=== PATIENT | male | born 1960 | race Caucasian/White ===

== ENCOUNTER 2019-10-25 07:51 | Outpatient (CLI) | payer BC, OTHER, SELFPAY ==
--- NOTE | ~2019-10-25 | US_ITS ---
EXAMINATION: US art doppler w press LE BI DATE: 10/25/2019 08:41 INDICATION: Lower limb pain and claudication. TECHNIQUE: Segmental pressures and plethysmographic and Doppler waveforms of the brachial and lower e xtremity arteries were obtained. COMPARISON: None. FINDINGS: Right and left brachial artery pressures of 100 mm Hg and 103 mm Hg, respectively, are concordant (no rmal difference <= 30 mmHg). The right and left high-thigh pressure indices are 1.17 and 0.66, respec tively (normal > 1.2). The right ankle-brachial index (NADER) is 1.20 (normal >= 0.9-1). The right great toe-brachial index (T BI) is 0.81 (normal >= 0.6-0.8). The right lower extremity segmental pressure gradients are normal (n ormal gradients <= 20-30 mmHg between adjacent levels on the same leg or the same levels on the two l egs). Arterial waveforms are biphasic with brisk systolic upstrokes throughout. The left NADER is 0.59. The left TBI is 0.20. The left lower extremity segmental pressure gradients are significantly decreased relative to the arteries in the right lower limb at each level. Arterial wav eforms demonstrate parvus tardus waveforms with dampened systolic peaks with mildly delayed upstrokes . IMPRESSION: 1. 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 Reviewed, dictated and finalized at location A. [employer] SCI[employer]
== END 2019-10-25 07:52 | disposition home or self-care (01) ==
PROVIDERS: PCP Family Medicine; Visit Provider Family Medicine
DX: M79.669 Pain in unspecified lower leg (principal); I73.9 Peripheral vascular disease, unspecified
CPT/HCPCS: 93923

== ENCOUNTER 2020-02-26 19:05 | Emergency (ER) | payer BC, OTHER, SELFPAY ==
--- NOTE | ~2020-02-26 | XR_ITS ---
EXAMINATION: XR foot RT min 3V DATE: 02/26/2020 19:55 INDICATION: Right heel pain TECHNIQUE: Dorsoplantar, two oblique and lateral views of the right foot were obtained. COMPARISON: None. FINDINGS: Mild hallux valgus with mild osteoarthritis at the first metatarsophalangeal joint. No acute fracture . Interval progression particularly in the subtalar joint of advanced osteoarthritis at the right tib iotalar and subtalar joints with remodeling of the articular surfaces of both joints resulting in los s of bone stock and flattening of the talar dome. Again seen is an old fracture deformity versus oste otomy at the head of the fifth metatarsal. There is severe secondary osteoarthritis at the fifth meta tarsophalangeal joint. Additional mild osteoarthritis at several tarsal metatarsal and interphalangea l joints. Soft tissues are unremarkable. IMPRESSION: 1. No acute osseous abnormality. 2. 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 Reviewed, dictated and finalized at location A. IMPRESSION: 1. No acute osseous abnormality. 2. Polyarticular osteoarthritis, advanced at the right ankle and subtalar joint s.
--- NOTE | ~2020-02-26 | XR_ITS ---
EXAMINATION: XR knee LT min 4V DATE: 02/26/2020 19:55 INDICATION: Left knee pain post fall TECHNIQUE: Anteroposterior, 2 oblique and crosstable lateral views of the left knee were obtained COMPARISON: None. FINDINGS: Alignment is normal. No fracture. Tricompartmental osteoarthritis at the left knee with mild joint s pace narrowing the medial compartment and moderate to severe joint space narrowing the lateral compar tment which could be underestimated on nonweightbearing imaging. Small marginal osteophytes in all 3 compartments. Moderate-sized left knee joint effusion without layering lipohemarthrosis. Loose osteoc hondral body at the recess of the posterior medial aspect of the left knee. Subtle enthesopathic ossi fication at the distal quadriceps tendon. Mild scattered atherosclerotic calcification in the distal thigh and proximal calf. IMPRESSION: 1. Moderate-sized left knee joint effusion which may be reactive. No lipohemarthrosis or acute osseou s abnormality. 2. Moderate to severe medial compartment predominant tricompartmental osteoarthritis at the left knee . Reviewed, dictated and finalized at location A. IMPRESSION: 1. Moderate-sized left knee joint effusion which may be reactive. No lipohemart hrosis or acute osseous abnormality. 2. Moderate to severe medial compartment predominant tricompartmental osteoarth ritis at the left knee.
[2020-02-26 19:11] VITALS: BP 117/75; PULSE 103; RESP 20; O2SAT 97
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
== END 2020-02-26 21:07 | disposition home or self-care (01) ==
PROVIDERS: Emergency Provider Emergency Medicine; PCP Family Medicine
DX: M25.562 Pain in left knee (principal); I10 Essential (primary) hypertension; M06.9 Rheumatoid arthritis, unspecified; M05.9 Rheumatoid arthritis with rheumatoid factor, unspecified; F17.200 Nicotine dependence, unspecified, uncomplicated; M79.671 Pain in right foot; M17.12 Unilateral primary osteoarthritis, left knee; M19.071 Primary osteoarthritis, right ankle and foot; V18.4XXA Pedal cycle driver injured in noncollision transport accident in traffic accident, initial encounter; Y93.55 Activity, bike riding
CPT/HCPCS: 73564; 73630; 99284; A9270

== ENCOUNTER 2022-01-22 08:35 | Inpatient (IN) | payer BC, OTHER, SELFPAY ==
--- NOTE | ~2022-01-22 | XR_ITS ---
EXAMINATION: XR hip RT 2V w AP pelvis DATE: 01/22/2022 09:08 INDICATION: Right hip pain post fall TECHNIQUE: Anteroposterior view of the pelvis and anteroposterior, frog leg and cross-table lateral v iews of the right hip were obtained. COMPARISON: None. FINDINGS: Nondisplaced transcervical fracture of the proximal right femur with posterolateral impaction resulti ng in approximately 10 degrees posterior and valgus angulation. No other fractures identified. Partia lly visualized left total hip arthroplasty in near-anatomic alignment. Mild bilateral sacroiliac oste oarthritis. Severe lumbosacral spondylosis. Scattered atherosclerotic calcific lesions in the pelvis and proximal thighs. Bilateral nephrolithiasis. IMPRESSION: 1. Impacted nondisplaced transcervical fracture of the proximal right femur with mild posterior and v algus angulation. Reviewed, dictated and finalized at location A. IMPRESSION: 1. Impacted nondisplaced transcervical fracture of the proximal right femur wit h mild posterior and valgus angulation.
--- NOTE | ~2022-01-22 | XR_ITS ---
EXAMINATION: XR surgery orthopedic DATE: 01/23/2022 13:28 INDICATION: Fixation of a right hip fracture. TECHNIQUE: 2 fluoroscopic images of the right hip were obtained during procedure performed by Dr. Vignesh gutierrez. Radiologist was not present for the imaging or procedure. The amount of fluoroscopy time used duri ng this procedure was 0.6 minutes. COMPARISON: None. FINDINGS: Interval fixation with 3 cannulated lag screws of the previous noted transcervical fracture of the pr oximal right femur. Alignment remains near-anatomic with no significant change in mild posterior and valgus angulation of the fracture. Mild osteoarthritis at the right hip. IMPRESSION: 1. Extension of a transcervical fracture of the proximal right femur which remains in near-anatomic a lignment with mild posterior and valgus angulation. Reviewed, dictated and finalized at location A. IMPRESSION: 1. Extension of a transcervical fracture of the proximal right femur which blaze ins in near-anatomic alignment with mild posterior and valgus angulation.
[2022-01-22 08:39] VITALS: BP 181/94; PULSE 82; RESP 16; TEMP 37.3; O2SAT 98
--- NOTE | 2022-01-22 08:55 | ED.LOWEXIN ---
HPI - Extremity Injury (Lower) General Chief Complaint: Extremity Injury, Lower Stated Complaint: R hip pain s/p Time Seen by Provider: 01/22/22 08:43 History of Present Illness HPI Narrative: 61-year-old male presents to the emergency room for evaluation of right hip pain. Patient states that approximately midnight he slipped and fell on a wet garage and injured his right hip. Patient states that he has not been ambulatory following the fall. Patient states pain radiates into his right groin. Pain with movement. Related Data Home Medications Medication Instructions Recorded Confirmed etanercept 50 mg/mL (1 mL) 50 mg SUB-Q WEEKLY 10/17/19 subcutaneous cartridge methotrexate sodium 2.5 mg tablet 20 mg PO WEEKLY tablet 10/17/19 Allergies Allergy/AdvReac Type Severity Reaction Status Date / Time No Known Allergies Allergy Verified 01/22/22 08:42 Review of Systems Review of Systems: CONSTITUTIONAL: Denies fever, chills, or sweats. EYES: Denies visual changes, redness, or discharge. ENT: Denies rhinorrhea, congestion, sore throat, or otalgia. CARDIOVASCULAR: Denies chest pain, palpitations, or edema. RESPIRATORY: Denies cough or dyspnea. GASTROINTESTINAL: Denies abdominal pain, nausea, vomiting, or diarrhea. GENITOURINARY: Denies dysuria or hematuria. SKIN: Denies rash or itching. MUSCULOSKELETAL: Reports right hip pain NEUROLOGIC: Denies headache, numbness, dizziness, or weakness. PSYCHIATRIC: Denies anxiety or depression. [facility] Past Medical History Medical History (Updated 01/22/22 @ 13:23 by Buffy Shahid APRN) Claudication in peripheral vascular disease Essential (primary) hypertension Rheumatoid arthritis involving multiple sites with positive rheumatoid factor Surgical History Surgical History (Updated 01/22/22 @ 13:23 by Buffy Shahid APRN) History of tonsillectomy History of total left hip replacement Family History Family History (Updated 01/22/22 @ 14:04 by Kelsie Soliz RN) Mother Family history of malignant neoplasm of breast Family history of malignant neoplasm of breast in first degree relative Sibling Heart attack S/P CABG x 4 Social History Social History (Updated 01/22/22 @ 13:24 by Buffy Shahid APRN) Smoking status: Former smoker Additional smoking assessment comments: patient states he smoked 2 packs of cigarettes a day for 45 years. Alcohol intake: current Alcohol use details: Patient drinks hard liquor on weekends. Exam Narrative: GENERAL: Well-appearing, well-nourished, and in no acute distress. HEAD: Normocephalic, atraumatic. EYES: PERRLA and EOMI. CHEST: Clear to auscultation. No respiratory distress. No wheezes rales or rhonchi HEART: Regular rate and rhythm. No murmur heard. Normal peripheral pulses. EXTREMITIES: Right hip: Tenderness to the right gluteal area, radiating into the right groin, extremity slightly shortened and rotated, distal pulses present SKIN: Warm, dry, no rash. NEURO: No focal deficits. Alert and oriented x3. PSYCH: Normal mood and affect. Course Course Emergency Course: 1000: Patient requesting transfer to [facility], to have fractured hip repair at [place]. Called [facility] transfer center, they are not excepting any transfers due to patient requests. 1015: Paged [facility]. Vital Signs Vital signs: Vital Signs Temperature 37.3 C 01/22/22 08:39 Pulse Rate 82 01/22/22 08:39 Respiratory Rate 16 01/22/22 08:39 Blood Pressure 181/94 H 01/22/22 08:39 Pulse Oximetry 98 01/22/22 08:39 Temperature 36.6 C 01/22/22 14:00 Pulse Rate 56 L 01/22/22 14:00 Respiratory Rate 18 01/22/22 14:00 Blood Pressure 166/77 H 01/22/22 14:00 Pulse Oximetry 100 01/22/22 14:00 MDM - Extremity Injury (Lower) MDM Narrative Medical decision making narrative: 61-year-old male presented the emergency room for evaluation of right hip pain status post mechanical fall that occurred earlier t
--- NOTE | 2022-01-22 09:22 | ECG_ITS ---
Measurements Intervals [place] Rate: 85 P: 78 PA: 148 QRS: 52 QRSD: 73 T: 67 QT: 372 QTc: 444 Interpretive Statements SINUS RHYTHM VENTRICULAR BIGEMINY ABNORMAL ECG Electronically Signed On 01-22-2022 10:20:02 CDT by Jarrell Bonilla D.O.
[2022-01-22 09:40] LABS: Basophils Percent Auto 0.4 % (0.2-1.2); Eosinophils Percent Auto 0.4 % (0-4.4); Hematocrit 38.7 % (42.0-52.0); Hemoglobin 12.8 g/dL (14.0-18.0); Immature Granulocyte Absolute 0.04 K/mm3 (0.00-0.031); Immature Granulocyte Percent A 0.5 % (0-0.5); Lymphocytes Absolute Auto 0.71 K/mm3 (0.9-3.2); Lymphocytes Percent Auto 8.3 % (18.3-44.2); Mean Corpuscular HGB Conc 33.1 g/dl (32-36); Mean Corpuscular Volume 99.7 fl (80-100); Mean Platelet Volume 9.9 fl (7.4-10.4); Monocytes Absolute Auto 0.7 K/mm3 (0.1-0.6); Monocytes Percent Auto 8.2 % (2.6-8.5); Neutrophils Percent Auto 82.2 % (45.5-73.1); Platelet Count Result 243 k/mm3 (150-375); Red Blood Count 3.88 M/mm3 (4.6-6.20); Red Cell Distribution Width 15.3 % (11.5-14.5); White Blood Count 8.5 K/mm3 (4.5-10.0)
[2022-01-22 10:08] LABS: Alanine Aminotransferase 22 U/L (6-50); Albumin Level 3.9 g/dL (3.5-5.1); Alkaline Phosphatase 104 U/L (38-126); Anion Gap 7 mmol/L (8-16); Aspartate Amino Transferase 27 U/L (17-59); Bilirubin,Total 0.8 mg/dL (0.2-1.3); Blood Urea Nitrogen 12 mg/dL (9-20); Calcium 8.4 mg/dL (8.4-10.2); Carbon Dioxide 22 mmol/L (22-30); Chloride 108 mmol/L (98-107); Estimated CRCL calculation 69 ml/min; Estimated Glomerular Filt Rate > 60; Glucose 116 mg/dL (65-110); Magnesium 1.9 mg/dL (1.6-2.3); Potassium 3.8 mmol/L (3.4-5.0); Sodium 137 mmol/L (137-145)
[2022-01-22 10:15] LABS: Appearance Urine Clear (Clear); Bilirubin Urine Negative (Negative); Blood Urine 1+ (Negative); Color Urine Yellow (Yellow); Glucose Urine UA Negative (Negative); Ketones Urine Negative (Negative); Leukocyte Esterase Ur Negative LEU/UL (Negative); Nitrate Urine Negative (Negative); Protein Urine Negative (Negative); Urobilinogen Urine 0.2 mg/dL (<2.0); pH Urine 6.5 (5.0-9.0)
[2022-01-22 10:19] LABS: Add Urine Microscopic? YES; Mucus Urine Rare /lpf; RBC Urine 21-50 /hpf (0-2); WBC Urine 0-3 /hpf
[2022-01-22 11:28] VITALS: BP 173/94; PULSE 76; RESP 18; O2SAT 97
[2022-01-22 12:21] VITALS: BP 175/85; PULSE 71; RESP 16; O2SAT 99
[2022-01-22 12:22] LABS: SARS-CoV-2 RNA PCR Negative
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
[2022-01-22 13:20] VITALS: BP 161/103; PULSE 63; RESP 16; O2SAT 99
[2022-01-22 13:45] VITALS: BMI 22.4
--- NOTE | 2022-01-22 13:45 | PC.NURSE ---
This patient, Scottie Jerome, was admitted to [facility] Surg Room 303-01. Patient/family oriented to hospital policies and general routines including ID bracelet, bed and alarms, visiting hours, pain management, procedures, bathroom and other care routines, personal items, smoking policy, room service/diet, and visiting hours. Information on how to activate the Rapid Response Team has been discussed. Patient/Family are encouraged to report perceived risks to care and to ask questions if they do not understand what they are told or what they should do.
[2022-01-22 14:00] VITALS: BP 166/77; PULSE 56; RESP 18; TEMP 36.6; O2SAT 100
[2022-01-22 14:59] LABS: INR 1.1; Prothrombin Time 13.4 Seconds (11.1-14.7)
[2022-01-22 15:00] LABS: Partial Thromboplastin Time 26.1 SECONDS (22.3-36.8)
--- NOTE | 2022-01-22 16:16 | PM.CNOR ---
Assessment and Plan Assessment and plan (1) Subcapital fracture of neck of right femur: Qualifiers: Encounter type: initial encounter Fracture type: closed Qualified Code(s): S72.011A - Unspecified intracapsular fracture of right femur, initial encounter for closed fracture Code(s): S72.011A - Unspecified intracapsular fracture of right femur, initial encounter for closed fracture Status: Acute Assessment and Plan: 61-year-old male with a right subcapital femoral neck fracture. This will need to be stabilized surgically with a pinning in-situ. Plan on proceeding with this tomorrow. Risks and potential complications were discussed in detail and questions answered. History of Present Illness HPI Consult date: 01/22/22 Consult reason: fracture Chief complaint: Right hip fracture Narrative: 61-year-old male with a left subcapital femoral neck fracture. He fell last night at his home was brought to the ER today where x-ray demonstrated subcapital fracture. He was admitted for further evaluation and treatment of this issue. No other injuries with this occurrence other than abrasion to his right wrist. History of left hip replacement about nine years ago. History rheumatoid arthritis. 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 Review of Systems Constitutional: Constitutional: Denies chills and Denies fever(s) Eyes: Eyes: Reports no additional eye complaints ENT: Reports system reviewed and no additional complaints, except as documented Cardiovascular: Cardiovascular: Denies chest pain Respiratory: Respiratory: Reports no additional respiratory complaints Gastrointestinal: Gastrointestinal: Denies abdominal pain PMFSH Past Medical History Medical History Claudication in peripheral vascular disease Essential (primary) hypertension Rheumatoid arthritis involving multiple sites with positive rheumatoid factor Surgical History Surgical History History of tonsillectomy History of total left hip replacement Family History Family History Mother Family history of malignant neoplasm of breast Family history of malignant neoplasm of breast in first degree relative Heart failure Sibling Heart attack S/P CABG x 4 Social History Social History Smoking packs per day: 2 Smoking cigarettes per day: 40.0 Years smoked: 45 Smoking pack-years: 90.00 Smoking status: Current every day smoker Tobacco type: e-cigarettes/vaping Additional smoking assessment comments: Patient stopped cigarettes 05/06/21 started vaping Alcohol intake: current Drinks per week: 5 Alcohol use details: Patient drinks hard liquor on weekends. Substance use: never Spiritual care concerns: No Meds Home Medications and Allergies Home Medications Medication Instructions Recorded Confirmed Type etanercept 50 mg/mL (1 mL) 50 mg SUB-Q WEEKLY 10/17/19 01/22/22 History subcutaneous cartridge methotrexate sodium 2.5 mg tablet 20 mg PO WEEKLY tablet 10/17/19 01/22/22 History tadalafil 20 mg tablet See Rx Instructions .ROUTE 04/15/21 01/22/22 Rx .COMPLEX #27 tablet lisinopril 10 mg PO DAILY 01/22/22 01/22/22 History metoprolol succinate 50 mg PO DAILY 01/22/22 01/22/22 History nicotine [Nicotrol] 3 mg INHALATION Q2-4H PRN 01/22/22 01/22/22 History Allergies Allergy/AdvReac Type Severity Reaction Status Date / Time No Known Allergies Allergy Verified 01/22/22 14:22 Vital Signs Vital Signs - 24 hr 01/22/22 08:39 01/22/22 11:28 01/22/22 12:21 Temperature 99.1 F Pulse Rate 82 76 71 Respiratory Rate 16 18 16 Blood Pressure 181/94 H 173/94 H 175/85 H Pulse Oximetry 98 97 99 01/22/22 13:20 01/22/22 14:00 Temperature 97.9 F Pulse Rate 63 56 L Respiratory
[2022-01-22 21:51] VITALS: BP 157/87; PULSE 74; RESP 16; TEMP 36.9; O2SAT 95
[2022-01-23] VITALS (13 sets, daily range): BP systolic 131–169; BP diastolic 74–125; PULSE 66–86; RESP 14–20; TEMP 36–36.8; O2SAT 97–100
--- NOTE | 2022-01-23 05:56 | PC.NURSE ---
Equal Opportunity Representative did not start fluids on pt as day shift RN gave in report an DATA DEVELOPER would be putting an order in to discontinue fluids.
[2022-01-23 06:50] LABS: Basophils Percent Auto 0.4 % (0.2-1.2); Eosinophils Absolute Auto 0.1 K/mm3 (0-0.3); Eosinophils Percent Auto 0.9 % (0-4.4); Hematocrit 41.5 % (42.0-52.0); Hemoglobin 14.1 g/dL (14.0-18.0); Immature Granulocyte Absolute 0.03 K/mm3 (0.00-0.031); Immature Granulocyte Percent A 0.4 % (0-0.5); Lymphocytes Absolute Auto 1.31 K/mm3 (0.9-3.2); Lymphocytes Percent Auto 16.1 % (18.3-44.2); Mean Corpuscular Hemoglobin 33.3 pg (26-34); Mean Corpuscular Volume 97.9 fl (80-100); Monocytes Absolute Auto 0.4 K/mm3 (0.1-0.6); Monocytes Percent Auto 5.4 % (2.6-8.5); Neutrophils Absolute Auto 6.3 K/mm3 (1.3-6.7); Neutrophils Percent Auto 76.8 % (45.5-73.1); Platelet Count Result 254 k/mm3 (150-375); Red Blood Count 4.24 M/mm3 (4.6-6.20); Red Cell Distribution Width 14.8 % (11.5-14.5); White Blood Count 8.2 K/mm3 (4.5-10.0)
[2022-01-23 07:01] LABS: Anion Gap 8 mmol/L (8-16); Blood Urea Nitrogen 11 mg/dL (9-20); Calcium 8.6 mg/dL (8.4-10.2); Carbon Dioxide 22 mmol/L (22-30); Chloride 105 mmol/L (98-107); Estimated CRCL calculation 74 ml/min; Estimated Glomerular Filt Rate > 60; Glucose 112 mg/dL (65-110); Magnesium 2.1 mg/dL (1.6-2.3); Potassium 3.7 mmol/L (3.4-5.0); Sodium 135 mmol/L (137-145)
[2022-01-23 08:57] LABS: Glucose Point of Care 104 mg/dl (65-105)
[2022-01-23] MEDS: lisinopriL 10 MG TABLET PO (09:06)
--- NOTE | 2022-01-23 10:16 | PM.IMPN ---
Progress Note: A&P Assessment and Plan (1) Closed fracture of right hip: Qualifiers: Encounter type: initial encounter Qualified Code(s): S72.001A - Fracture of unspecified part of neck of right femur, initial encounter for closed fracture Code(s): S72.001A - Fracture of unspecified part of neck of right femur, initial encounter for closed fracture Status: Deleted Assessment and Plan: Orthopedic surgery has been consult and appreciate further recommendations. (2) Essential (primary) hypertension: Code(s): I10 - Essential (primary) hypertension Status: Acute Assessment and Plan: monitor (3) Rheumatoid arthritis involving multiple sites with positive rheumatoid factor: Code(s): M05.79 - Rheumatoid arthritis with rheumatoid factor of multiple sites without organ or systems involvement Status: Acute Assessment and Plan: chronic and stable Subjective Date/time seen: 01/23/22 10:16 pain controlled Exam Narrative: Constitutional: Patient is well-nourished in no acute distress. Patient is alert and oriented x3 HEENT: Moist mucous membranes. No scleral icterus. No lymphadenopathy. Neck: No carotid bruits noted no JVD noted Lungs: Lung sounds are clear to auscultation bilaterally. No accessory muscle use. No rhonchi, rales, or wheezes noted. Cardiovascular: Apical pulse is regular rate and rhythm. S1-S2 noted, no S3 or S4 noted. No gallops, murmurs, or rubs noted. Abdomen: Soft, round, and nontender. No palpable masses. Extremities: No edema. Patient's right lower extremity is shorter than left lower extremity. Patient's right pedal pulses palpable at 3+ with a posterior tibial pulses 2+. Skin: No rashes or lesions. Warm and dry. Skin is intact. Neurological: No focal neurological deficits. Cranial nerves II-XII grossly intact. Psychiatric: Cooperative, appropriate mood, and affect Objective Data Vital Signs Vital Signs: Vital Signs - 24 hr 01/22/22 11:28 01/22/22 12:21 01/22/22 13:20 Temperature Pulse Rate 76 71 63 Respiratory Rate 18 16 16 Blood Pressure 173/94 H 175/85 H 161/103 H Pulse Oximetry 97 99 99 01/22/22 14:00 01/22/22 21:51 01/23/22 06:00 Temperature 97.9 F 98.4 F 98.2 F Pulse Rate 56 L 74 70 Respiratory Rate 18 16 14 Blood Pressure 166/77 H 157/87 H 161/110 H Pulse Oximetry 100 95 98 01/23/22 07:56 Temperature Pulse Rate Respiratory Rate Blood Pressure 152/74 H Pulse Oximetry Intake/Output Intake/Output: Intake & Output 01/20/22 01/21/22 01/22/22 01/23/22 23:59 23:59 23:59 23:59 Intake Total 150 100 Output Total 290 550 Balance -140 -450 Meds/Results Medications: Active Medications Generic Name Dose Route Start Last Admin Trade Name Freq PRN Reason Stop Dose Admin Hydrocodone Bitart/Acetaminophen 1 tab 01/22/22 13:09 Hydrocodone/Acetaminophen (*Crx) 5-325 Mg Tablet PO Q6H PRN Moderate Pain (4-6) Enoxaparin Sodium 40 mg 01/24/22 09:00 Enoxaparin 40 Mg/0.4 Ml Syringe SUB-Q DAILY [facility] Acetaminophen 1,000 mg in 100 mls @ 400 mls/hr 01/22/22 12:20 01/23/22 09:04 Ofirmev 1,000 Mg Ivpb IVPB 01/23/22 12:19 400 mls/hr Q6H PRN Administration Mild Pain (1-3) or Fever Sodium Chloride 1,000 mls @ 125 mls/hr 01/22/22 12:20 Normal Saline Iv IV CONT .Q8H ERIK Cefazolin Sodium 2 gm in 50 mls @ 100 mls/hr 01/23/22 12:00 Ancef 2 Gm/D5w 50 Ml IVPB 01/23/22 12:29 ONCE ONE Lactated Ringer's 1,000 mls @ 30 mls/hr 01/23/22 08:05 Lr - Lactated Ringers Iv IV CONT .Q24H ERIK Lisinopril 10 mg 01/23/22 09:00 01/23/22 09:06 Lisinopril 10 Mg Tablet PO 10 mg DAILY ERIK Administration Morphine Sulfate 2 mg 01/22/22 13:09 Morphine Sulfate (*Crx) 2 Mg/Ml Inj IV PUSH Q4H PRN Severe Pain Ondansetron HCl 4 mg 01/22/22 12:20 Ondansetron Inj 4 Mg/2 Ml Vial IV PUSH Q4H PRN Nausea Radi
--- NOTE | 2022-01-23 11:15 | PC.NURSE ---
To OR via bed.
[2022-01-23] MEDS: LACTATED RINGERS 1,000 ML 30 ML IV CONT ×2 (11:44→13:37)
--- NOTE | 2022-01-23 11:53 | WPDANESEPPF ---
Anes - Initial Pre Proc Eval Procedure: Operation Date: 01/23/22 12:30 Proposed Procedures p Right Hip Pinning, Cannulated Screws - Hieu Ramos MD Date/Time: 01/23/22 11:53 Surgeon: Chong Cole MD Pre Op Diagnosis: Right hip fracture Patient Data Age: 61 Gender: M Height: 1.78 m Weight: 70.9 kg Last Vital Signs Temp 97.6 F 01/23/22 11:35 Pulse 77 01/23/22 11:35 Resp 14 01/23/22 11:35 BP 168/95 H 01/23/22 11:35 Pulse Ox 98 01/23/22 11:35 Allergies Allergy/AdvReac Type Severity Reaction Status Date / Time No Known Allergies Allergy Verified 01/22/22 14:22 Home Medications Medication Instructions Recorded Confirmed Type etanercept 50 mg/mL (1 mL) 50 mg SUB-Q WEEKLY 10/17/19 01/22/22 History subcutaneous cartridge methotrexate sodium 2.5 mg tablet 20 mg PO WEEKLY tablet 10/17/19 01/22/22 History tadalafil 20 mg tablet See Rx Instructions .ROUTE 04/15/21 01/22/22 Rx .COMPLEX #27 tablet [employer] 2 cap BYMOUTH HS 01/22/22 01/22/22 History lisinopril 10 mg PO DAILY 01/22/22 01/22/22 History metoprolol succinate 50 mg PO DAILY 01/22/22 01/22/22 History nicotine [Nicotrol] 3 mg INHALATION Q2-4H PRN 01/22/22 01/22/22 History Laboratory Tests 01/22/22 01/22/22 01/23/22 11:32 14:24 06:01 WBC 8.2 K/mm3 K/mm3 (4.5-10.0) RBC 4.24 M/mm3 L M/mm3 (4.6-6.20) Hgb 14.1 g/dL g/dL (14.0-18.0) Hct 41.5 % L % (42.0-52.0) MCV 97.9 fl fl (80-100) MCH 33.3 pg pg (26-34) MCHC 34.0 g/dl g/dl (32-36) RDW 14.8 % H % (11.5-14.5) Plt Count 254 k/mm3 k/mm3 (150-375) MPV 10.0 fl fl (7.4-10.4) Immature Gran % (Auto) 0.4 % % (0-0.5) Neut % (Auto) 76.8 % H % (45.5-73.1) Lymph % (Auto) 16.1 % L % (18.3-44.2) Thur[place] % (Auto) 5.4 % % (2.6-8.5) Eos % (Auto) 0.9 % % (0-4.4) Baso % (Auto) 0.4 % % (0.2-1.2) Lymph # (Auto) 1.31 K/mm3 K/mm3 (0.9-3.2) Thur[place] # (Auto) 0.4 K/mm3 K/mm3 (0.1-0.6) Eos # (Auto) 0.1 K/mm3 K/mm3 (0-0.3) Baso # (Auto) 0.0 K/mm3 K/mm3 (0.0-0.1) Abs Immat Gran (auto) 0.03 K/mm3 K/mm3 (0.00-0.031) Absolute Neuts (auto) 6.3 K/mm3 K/mm3 (1.3-6.7) Absolute Nucleated RBC 0.0 K/mm3 K/mm3 (0.0-0.012) Nucleated RBC % 0.0 % % (0.0-0.2) PT 13.4 Seconds Seconds (11.1-14.7) INR 1.1 APTT 26.1 SECONDS SECONDS (22.3-36.8) Sodium Potassium Chloride Carbon Dioxide Anion Gap BUN Creatinine Estim Creat Clear Calc Estimated GFR Glucose POC Capillary Glucose Calcium Magnesium SARS-CoV-2 RNA (RT-PCR) Negative 01/23/22 01/23/22 06:01 08:54 WBC RBC Hgb Hct MCV MCH MCHC RDW Plt Count MPV Immature Gran % (Auto) Neut % (Auto) Lymph % (Auto) [place] % (Auto) Eos % (Auto) Baso % (Auto) Lymph # (Auto) Thur[place] # (Auto) Eos # (Auto) Baso # (Auto) Abs Immat Gran (auto) Absolute Neuts (auto) Absolute Nucleated RBC Nucleated RBC % PT INR APTT Sodium 135 mmol/L L mmol/L (137-145) Potassium 3.7 mmol/L mmol/L (3.4-5.0) Chloride 105 mmol/L mmol/L (98-107) Carbon Dioxide 22 mmol/L mmol/L (22-30) Anion Gap 8 mmol/L mmol/L (8-16) BUN 11 mg/dL mg/dL (9-20) Creatinine 0.90 mg/dL mg/dL (0.7-1.3) Estim Creat Clear Calc 74 ml/min ml/min Estimated GFR > 60 (59 - ) Glucose 112 mg/dL H mg/dL (65-110)
--- NOTE | 2022-01-23 12:09 | WPDHPUPDATE1 ---
History and Physical Update Update Date/Time: 01/23/22 12:09 History and Physical has been reviewed, including an updated exam of the patient. There are NO changes in the patient's condition. Risks, benefits, and alternatives have been discussed and questions answered. Patient agrees to proceed with procedure.
[2022-01-23] MEDS: ceFAZolin 2 GM/D5W 50 ML 2 GM/50 ML BAG IVPB ×2 (12:32→21:19)
[2022-01-23] MEDS: LIDO 1%/EPINEPHRINE/PF 1:200,000 30 ML VIAL XX (13:20)
--- NOTE | 2022-01-23 13:39 | W.PM.PROC2 ---
Procedure Note - Detailed Date of Procedure 01/23/22 Pre-op Diagnosis Right subcapital femoral neck fracture Post-op Diagnosis Same Procedure Performed Pinning in-situ right subcapital femoral neck fracture Surgeon Hieu Ramos MD Outsole [employer]ement[employer] Ashley Henry Anesthesia General Description of Procedure The patient was identified and proper site identified. He was taken back to the operative induction and intubation, he was transferred to the [place] table taking care to properly pad position is torso extremities. The fracture was examined fluoroscopically and noted to be in unchanged slightly impacted position. The right hip and thigh was prepped and draped in the usual sterile fashion. 10 cubic centimeters of 1% lidocaine and epinephrine solution was injected into the subcutaneous tissue in the area of the incision. A longitudinal incision was made. Subcutaneous tissue sharply dissected to the ID band which was divided in line with the incision. Under fluoroscopic control, three guide pins for the cannulated screw set were placed into the femoral neck and head with the targeting device and then over these three 6.5 millimeter cannulated screws were inserted and the guide pins removed. Position was assessed fluoroscopically on the AP and lateral views and noted be satisfactory. Wound was irrigated with sterile saline. ID band reapproximated with one Vicryl and 1. Vicryl was used to reapproximate subcutaneous tissue. Skin closed with three 0 V lock and grant. Sterile dressing was applied. Patient tolerated the procedure well. He was awakened, extubated and taken to the recovery area in stable condition. There were no known intraoperative complications. Estimated blood loss was negligible. He received reid operative antibiotics. Estimated Blood Loss 5 Urine Output 300 Drains No Packing No Pathology None sent Complications No immediate complications Condition Stable Disposition PACU
[2022-01-23] MEDS: fentaNYL CITRATE INJ (*CRX) 100 MCG/2 ML VIAL 25 MCG IV PUSH ×2 (14:03→14:06)
[2022-01-23] MEDS: FAMOTIDINE 20 MG TABLET PO (21:20)
[2022-01-24] VITALS (8 sets, daily range): BP systolic 131–150; BP diastolic 79–97; PULSE 74–87; RESP 16–22; TEMP 35.7–36.8; O2SAT 96–100
[2022-01-24] MEDS: ACETAMINOPHEN 325 MG TABLET 650 MG PO (00:54)
[2022-01-24] MEDS: ceFAZolin 2 GM/D5W 50 ML 2 GM/50 ML BAG IVPB ×2 (05:24→12:11)
--- NOTE | 2022-01-24 09:50 | PM.PNORT ---
Progress Note: A&P Assessment and Plan (1) Subcapital fracture of neck of right femur: Qualifiers: Encounter type: initial encounter Fracture type: closed Qualified Code(s): S72.011A - Unspecified intracapsular fracture of right femur, initial encounter for closed fracture Code(s): S72.011A - Unspecified intracapsular fracture of right femur, initial encounter for closed fracture Status: Acute Assessment and Plan: 61 year old male post op day 1 after pinning of right subcapital femoral neck fracture. Overall doing well and progressing with therapy. He is able to maintain toe touch weight bearing status without difficulty. Plan to have him stay today with possible discharge tomorrow. Home health therapy for 2 weeks would be reasonable. Plan follow up in 2 weeks for wound check and new xray. DVT prohylaxis: eliquis Pain control: tylenol and norco Subjective Subjective Date/Time Seen: 01/24/22 09:50 Post Op day: 1 Principal diagnosis: Pinning in-situ right subcapital femoral neck fracture Interval history: 61 year old male post op day after pinning right subcapital femoral neck fracture. Overall doing very well. He is up and moving and cooperating with his weight bearing status. No issues or concerns overnight. Review of Systems Review of Systems: All systems reviewed & are unremarkable except as noted in HPI and below Exam Const: General: comfortable and no acute distress Resp: Effort & Inspection: normal respiratory effort GI: Inspection: non-distended Skin: General skin exam: no rashes or lesions noted Neuro: Sensory Exam: normal sensation Extrem: Other: Exam of the right lower extremity reveals a clean and dry surgical dressing. Little to no edema of the extremity. No numbness or tingling. He is able to wiggle his toes and dorsiflex/plantarflex the foot without difficulty. Neurovascular status of the RLE is unremarkable. Psych: Mental Status: mental status grossly normal Objective Data Vital Signs Vital Signs: Vital Signs - 24 hr 01/23/22 11:35 01/23/22 13:37 01/23/22 13:50 Temperature 97.6 F 98.0 F Pulse Rate 77 81 69 Respiratory Rate 14 20 20 Blood Pressure 168/95 H 131/90 169/90 H Pulse Oximetry 98 99 100 01/23/22 14:05 01/23/22 14:20 01/23/22 14:35 Temperature Pulse Rate 66 77 70 Respiratory Rate 16 20 14 Blood Pressure 165/96 H 162/99 H 161/95 H Pulse Oximetry 100 97 100 01/23/22 14:46 01/23/22 15:01 01/23/22 15:31 Temperature 96.8 F L 97.3 F L 97.5 F L Pulse Rate 68 74 71 Respiratory Rate 16 18 16 Blood Pressure 163/93 H 151/98 H 161/97 H Pulse Oximetry 100 98 99 01/23/22 16:31 01/23/22 20:31 01/24/22 00:31 Temperature 97 F L 98.2 F 98.2 F Pulse Rate 78 86 80 Respiratory Rate 16 18 18 Blood Pressure 166/94 H 140/125 H 150/95 H Pulse Oximetry 99 97 96 01/24/22 04:29 Temperature 98.0 F Pulse Rate 78 Respiratory Rate 18 Blood Pressure 138/97 H Pulse Oximetry 99 Intake/Output Intake/Output: Intake & Output 01/21/22 01/22/22 01/23/22 01/24/22 23:59 23:59 23:59 23:59 Intake Total 150 700 350 Output Total 290 1250 500 Balance -140 -550 -150 Meds/Results Medications: Active Medications Generic Name Dose Route Start Last Admin Trade Name Freq PRN Reason Stop Dose Admin Acetaminophen 650 mg 01/23/22 14:46 01/24/22 00:54 Acetaminophen 325 Mg Tablet PO 650 mg Q6H PRN Administration Mild Pain (1-3) or Fever Hydrocodone Bitart/Acetaminophen 1 tab 01/23/22 14:46 Hydrocodone/Acetaminophen (*Crx) 5-325 Mg Tablet PO Q3H PRN Pain Rated 4-6 Hydrocodone Bitart/Acetaminophen 2 tab 01/23/22 14:46 Hydrocodone/Acetaminophen (*Crx) 5-325 Mg Tablet PO Q6H PRN Pain Rated 7-10 Apixaban 2.5 mg 01/24/22 09:00 Apixaban 2.5 Mg Tablet PO Q12HR ERIK Famotidine 20 mg 01/23/22 21:00 01/23/22 21:20 Famotidine 20 Mg Tablet PO 20 mg Q12HR ERIK Administration Cefazolin Sodium 2 g
[2022-01-24] MEDS: METOPROLOL SUCCINATE EXT REL 50 MG TABCR PO (09:55)
[2022-01-24] MEDS: FAMOTIDINE 20 MG TABLET PO ×2 (09:56→20:19)
[2022-01-24] MEDS: lisinopriL 10 MG TABLET PO (09:56)
[2022-01-24] MEDS: APIXABAN 2.5 MG TABLET PO ×2 (09:57→20:19)
--- NOTE | 2022-01-24 11:15 | PM.IMPN ---
Progress Note: A&P Assessment and Plan (1) Closed fracture of right hip: Qualifiers: Encounter type: initial encounter Qualified Code(s): S72.001A - Fracture of unspecified part of neck of right femur, initial encounter for closed fracture Code(s): S72.001A - Fracture of unspecified part of neck of right femur, initial encounter for closed fracture Status: Deleted Assessment and Plan: Orthopedic surgery has been consult and appreciate further recommendations. (2) Essential (primary) hypertension: Code(s): I10 - Essential (primary) hypertension Status: Acute Assessment and Plan: monitor (3) Rheumatoid arthritis involving multiple sites with positive rheumatoid factor: Code(s): M05.79 - Rheumatoid arthritis with rheumatoid factor of multiple sites without organ or systems involvement Status: Acute Assessment and Plan: chronic and stable Subjective Date/time seen: 01/24/22 11:15 Doing well Exam Narrative: Constitutional: Patient is well-nourished in no acute distress. Patient is alert and oriented x3 HEENT: Moist mucous membranes. No scleral icterus. No lymphadenopathy. Neck: No carotid bruits noted no JVD noted Lungs: Lung sounds are clear to auscultation bilaterally. No accessory muscle use. No rhonchi, rales, or wheezes noted. Cardiovascular: Apical pulse is regular rate and rhythm. S1-S2 noted, no S3 or S4 noted. No gallops, murmurs, or rubs noted. Abdomen: Soft, round, and nontender. No palpable masses. Extremities: No edema. Patient's right lower extremity is shorter than left lower extremity. Patient's right pedal pulses palpable at 3+ with a posterior tibial pulses 2+. Skin: No rashes or lesions. Warm and dry. Skin is intact. Neurological: No focal neurological deficits. Cranial nerves II-XII grossly intact. Psychiatric: Cooperative, appropriate mood, and affect Objective Data Vital Signs Vital Signs: Vital Signs - 24 hr 01/23/22 11:35 01/23/22 13:37 01/23/22 13:50 Temperature 97.6 F 98.0 F Pulse Rate 77 81 69 Respiratory Rate 14 20 20 Blood Pressure 168/95 H 131/90 169/90 H Pulse Oximetry 98 99 100 01/23/22 14:05 01/23/22 14:20 01/23/22 14:35 Temperature Pulse Rate 66 77 70 Respiratory Rate 16 20 14 Blood Pressure 165/96 H 162/99 H 161/95 H Pulse Oximetry 100 97 100 01/23/22 14:46 01/23/22 15:01 01/23/22 15:31 Temperature 96.8 F L 97.3 F L 97.5 F L Pulse Rate 68 74 71 Respiratory Rate 16 18 16 Blood Pressure 163/93 H 151/98 H 161/97 H Pulse Oximetry 100 98 99 01/23/22 16:31 01/23/22 20:31 01/24/22 00:31 Temperature 97 F L 98.2 F 98.2 F Pulse Rate 78 86 80 Respiratory Rate 16 18 18 Blood Pressure 166/94 H 140/125 H 150/95 H Pulse Oximetry 99 97 96 01/24/22 04:29 01/24/22 08:31 01/24/22 09:55 Temperature 98.0 F 97.5 F L Pulse Rate 78 79 80 Respiratory Rate 18 16 Blood Pressure 138/97 H 131/79 Pulse Oximetry 99 97 Intake/Output Intake/Output: Intake & Output 01/21/22 01/22/22 01/23/22 01/24/22 23:59 23:59 23:59 23:59 Intake Total 150 700 470 Output Total 290 1250 500 Balance -140 -550 -30 Meds/Results Medications: Active Medications Generic Name Dose Route Start Last Admin Trade Name Freq PRN Reason Stop Dose Admin Acetaminophen 650 mg 01/23/22 14:46 01/24/22 00:54 Acetaminophen 325 Mg Tablet PO 650 mg Q6H PRN Administration Mild Pain (1-3) or Fever Hydrocodone Bitart/Acetaminophen 1 tab 01/23/22 14:46 Hydrocodone/Acetaminophen (*Crx) 5-325 Mg Tablet PO Q3H PRN Pain Rated 4-6 Hydrocodone Bitart/Acetaminophen 2 tab 01/23/22 14:46 Hydrocodone/Acetaminophen (*Crx) 5-325 Mg Tablet PO Q6H PRN Pain Rated 7-10 Apixaban 2.5 mg 01/24/22 09:00 01/24/22 09:57 Apixaban 2.5 Mg Tablet PO 2.5 mg Q12HR ERIK Administration Famotidine 20 mg 01/23/22 21:00 01/24/22 09:56 Famotidine 20 Mg Tablet PO 20 mg Q12H
[2022-01-25 06:00] VITALS: BP 131/90; PULSE 60; RESP 18; TEMP 36.4; O2SAT 97
--- NOTE | 2022-01-25 07:53 | PM.PNORT ---
Progress Note: A&P Assessment and Plan (1) Subcapital fracture of neck of right femur: Qualifiers: Encounter type: initial encounter Fracture type: closed Qualified Code(s): S72.011A - Unspecified intracapsular fracture of right femur, initial encounter for closed fracture Code(s): S72.011A - Unspecified intracapsular fracture of right femur, initial encounter for closed fracture Status: Acute Assessment and Plan: plan discharge home today. Home health for two weeks. Follow up in about two weeks for staple removal. Patient is to maintain his protected weight-bearing status for at least eight weeks. He is to call with any questions prior to his follow-up. Plan on using aspirin for DVT prophylaxis for eight weeks. Subjective Subjective Date/Time Seen: 01/25/22 07:53 Post Op day: 2 Principal diagnosis: Subcapital right femoral neck fracture Interval history: This document created with [id number] technology and is subject to gunner's mate m irregularities. 61-year-old male postop day two pinning in-situ right subcapital femoral neck fracture. Having virtually no discomfort in his hip. Able to maintain his protected weight-bearing status. Review of Systems Constitutional: Constitutional: Denies chills and Denies fever(s) Eyes: Eyes: Reports no additional eye complaints ENT: Reports system reviewed and no additional complaints, except as documented Cardiovascular: Cardiovascular: Denies chest pain Respiratory: Respiratory: Reports no additional respiratory complaints Gastrointestinal: Gastrointestinal: Denies abdominal pain Exam Const: General: cooperative, no acute distress and alert Nutritional Appearance: other Orientation/consciousness: patient oriented x3 Limitations: no limitations HENMT: Head: normal to inspection Ears: hearing grossly normal bilaterally Face and sinus: face symmetric and other (lance is dyed bright blue) Mouth: Yes moist mucous membranes Teeth and gingiva: fair dentition Eyes: Alignment and Position: alignment normal and position normal Sclera: sclerae normal Neck: Neck: normal visual inspection and nontender Chest: Chest palpation & inspection: normal inspection of the chest Resp: Effort & Inspection: normal respiratory effort and able to speak in complete sentences GI: Inspection: other ( Nondistended) Skin: General skin exam: normal color Rashes: no rashes Neuro: General: patient oriented x3 Cognition (Neuro): normal cognition Speech: normal speech Sensory Exam: normal sensation Extrem: General: normal to inspection and other Other: Exam of right lower extremity shows virtually no swelling and no drainage nor erythema around the hip incision. Grossly motor and sensory function intact right lower extremity. Psych: Appearance: grossly normal Mental Status: mental status grossly normal Objective Data Vital Signs Vital Signs: Vital Signs - 24 hr 01/24/22 08:31 01/24/22 09:55 01/24/22 11:53 Temperature 97.5 F L Pulse Rate 79 80 Respiratory Rate 16 Blood Pressure 131/79 142/88 H Pulse Oximetry 97 01/24/22 12:31 01/24/22 16:13 01/24/22 20:23 Temperature 97.5 F L 96.3 F L 97.3 F L Pulse Rate 87 74 76 Respiratory Rate 20 22 H 18 Blood Pressure 142/88 H 147/85 H 148/97 H Pulse Oximetry 100 97 97 01/25/22 06:00 Temperature 97.6 F Pulse Rate 60 Respiratory Rate 18 Blood Pressure 131/90 Pulse Oximetry 97 Intake/Output Intake/Output: Intake & Output 01/22/22 01/23/22 01/24/22 01/25/22 23:59 23:59 23:59 23:59 Intake Total 150 / 150 700 / 700 1000 / 1000 450 / 450 Output Total 290 / 290 1250 / 1250 500 / 500 1300 / 1300 Balance -140 / -140 -550 / -550 500 / 500 -850 / -850 Meds/Results Medications: Active Medications Generic Name Dose Route Start Last Admin Trade Name Freq PRN Reason Stop Dose Admin Acetaminophen 650 mg 01/23/22 14:46 01/24/22 00:54 Acetaminophen 325 Mg Tablet PO 650 mg
[2022-01-25 08:33] VITALS: PULSE 60
[2022-01-25] MEDS: FAMOTIDINE 20 MG TABLET PO (08:33)
[2022-01-25] MEDS: METOPROLOL SUCCINATE EXT REL 50 MG TABCR PO (08:33)
[2022-01-25] MEDS: APIXABAN 2.5 MG TABLET PO (08:34)
[2022-01-25] MEDS: lisinopriL 10 MG TABLET PO (08:35)
--- NOTE | 2022-01-25 09:47 | PM.DS ---
DS: Admitting Diagnosis Discharge Date January 25, 2022 Admitting Diagnosis Hip fracture DS: Discharge Diagnosis Discharge Diagnosis (1) Closed fracture of right hip: Qualifiers: Encounter type: initial encounter Qualified Code(s): S72.001A - Fracture of unspecified part of neck of right femur, initial encounter for closed fracture Code(s): S72.001A - Fracture of unspecified part of neck of right femur, initial encounter for closed fracture Status: Deleted Assessment and Plan: Status post surgery doing well. Outpatient or home health with PT. Eliquis low-dose on discharge for DVT prophylaxis (2) Essential (primary) hypertension: Code(s): I10 - Essential (primary) hypertension Status: Acute Assessment and Plan: monitor (3) Rheumatoid arthritis involving multiple sites with positive rheumatoid factor: Code(s): M05.79 - Rheumatoid arthritis with rheumatoid factor of multiple sites without organ or systems involvement Status: Acute Assessment and Plan: chronic and stable DS: Summary Hospital Course Hospital Course: Patient was admitted for hip fracture had subcapital fracture nailing performed. Doing well. Follow up with Orthopedics Time Spent with Patient Time attestation: Total time spent providing and/or coordinating discharge services: Less than 30 min Exam Narrative: Constitutional: Patient is well-nourished in no acute distress. Patient is alert and oriented x3 HEENT: Moist mucous membranes. No scleral icterus. No lymphadenopathy. Neck: No carotid bruits noted no JVD noted Lungs: Lung sounds are clear to auscultation bilaterally. No accessory muscle use. No rhonchi, rales, or wheezes noted. Cardiovascular: Apical pulse is regular rate and rhythm. S1-S2 noted, no S3 or S4 noted. No gallops, murmurs, or rubs noted. Abdomen: Soft, round, and nontender. No palpable masses. Extremities: No edema. Patient's right lower extremity is shorter than left lower extremity. Patient's right pedal pulses palpable at 3+ with a posterior tibial pulses 2+. Skin: No rashes or lesions. Warm and dry. Skin is intact. Neurological: No focal neurological deficits. Cranial nerves II-XII grossly intact. Psychiatric: Cooperative, appropriate mood, and affect Discharge Plan Discharge Attending physician on discharge: Raphael Teran Consulting providers: Hieu Ramos Discharging Clinician: Raphael Teran Patient Disposition: Home, Self-Care Activity: no preference Diet: as tolerated Discharge Instructions: For Dr. Ramos: Remain toe-touch/touchdown weight bearing on the right lower extremity for a minimum of 8 weeks. This means you must use a walker night time nanny during this time. Home health therapy will come out to your house for 2 weeks to help show you how to get around the home. Please call the office for a follow-up appointment to be seen on February 06, 2022. Please call our office at [phone] with any questions or concerns regarding the right hip. You will be using enteric-coated aspirin 325 milligrams daily x8 weeks for prevention of blood clots. Please keep your wound clean and dry. Arthritis formula Tylenol 650 milligrams one tablet up to 3 times a day should be sufficient for pain control. If you need more than that, you are over doing it. You can restart your Enbrel after grant are removed. Per Care Coordination Patient has been arranged to have [facility] for RN, PT, OT [phone] RN please fax completed discharge instructions to [phone] Patient Instructions: Antibiotic Form, Apixaban (By mouth), Pain Management in Older Adults (DC) Stand Alone Forms: General Discharge Information Follow-up/Referrals: Hieu Ramos MD [Physician] - Discharge Medications: New Eliquis 2.5 mg Tablet 2.5 mg PO Q12HR 20 Days Qty: 40 RF: 0 Continued Enbrel Mini 50 mg/mL (1 mL) cartridge
== END 2022-01-25 11:20 | disposition home health service (06) | DRG 482 ==
LOC: ANHED 12:20 → ANH3MEDSUR 13:19
PROVIDERS: Nurse Practitioner Adult Health; Orthopaedic Surgery; Admitting Provider Internal Medicine; Emergency Provider Nurse Practitioner Family; PCP Family Medicine; Visit Provider Chiropractor
PROC: 0QH634Z Insertion of Internal Fixation Device into Right Upper Femur, Percutaneous Approach (ICD-10-PCS; principal; 2022-01-23 12:30)
DX: S72.011A Unspecified intracapsular fracture of right femur, initial encounter for closed fracture (principal); W01.0XXA Fall on same level from slipping, tripping and stumbling without subsequent striking against object, initial encounter; Z20.822 Contact with and (suspected) exposure to COVID-19; M05.79 Rheumatoid arthritis with rheumatoid factor of multiple sites without organ or systems involvement; I73.9 Peripheral vascular disease, unspecified; I10 Essential (primary) hypertension; Z87.891 Personal history of nicotine dependence; Z79.899 Other long term (current) drug therapy
CPT/HCPCS: 36415; 73502; 80048; 80053; 81001; 82948; 83735; 85025; 85610; 85730; 86850; 86900; 86901; 93005; 96374; 96376; 97110; 97116; 97161; 97165; 97530; 97535; 99285; A9270; C1713; C1769; C9803; G0378; J0131; J0690; J1100; J1170; J2250; J2370; J2405; J2704; J3010; J7120; U0003; U0005

== ENCOUNTER 2022-02-06 11:43 | Outpatient (CLI) | payer BC, OTHER, SELFPAY ==
--- NOTE | ~2022-02-06 | XR_ITS ---
EXAMINATION: XR shoulder RT min 2V INDICATION: Right shoulder pain TECHNIQUE: Four views of the right shoulder are submitted. COMPARISON: None FINDINGS: Normal alignment. No acute fracture. There is mild osteoarthritis of the lateral humeral an d acromioclavicular joints. Soft tissues are unremarkable. Healed right-sided rib fractures are noted . IMPRESSION: 1. No acute osseous abnormality. Reviewed, dictated and finalized at location F.
== END 2022-02-06 11:44 | disposition home or self-care (01) ==
PROVIDERS: PCP Family Medicine; Visit Provider Nurse Practitioner Family
DX: M19.011 Primary osteoarthritis, right shoulder (principal)
CPT/HCPCS: 73030

== ENCOUNTER 2022-04-02 14:54 | Emergency (ER) | payer BC, OTHER, SELFPAY ==
--- NOTE | ~2022-04-02 | CT_ITS ---
EXAMINATION: CT brain wo con DATE: 04/02/2022 15:43 INDICATION: Left facial droop TECHNIQUE: Computed tomography (CT) of the head was performed without intravenous contrast. The dose- length product was 681.00 mGy-cm. Automated exposure control and iterative reconstruction technique w ere employed. COMPARISON: None FINDINGS: Mild generalized atrophy. There are scattered mild periventricular and subcortical white ma tter changes, most likely related to small vessel ischemic disease (microangiopathy). No ventriculome darya or midline shift. Basilar cisterns are patent. Paranasal sinuses and mastoids are pneumatized. N o depressed skull fractures. Midline sagittal images demonstrate a normal corpus callosum and craniov ertebral junction. IMPRESSION: 1. No acute intracranial abnormality. 2: Chronic age-related findings. Reviewed, dictated and finalized at location A.
[2022-04-02 14:57] VITALS: BP 150/103; PULSE 82; RESP 18; TEMP 36.6; O2SAT 100
--- NOTE | 2022-04-02 15:13 | ED.NEUROSD ---
HPI - Neuro Symptoms/Deficit General Chief Complaint: Neuro Symptoms/Deficit Stated Complaint: L sided facial droop Time Seen by Provider: 04/02/22 14:59 Source: patient Mode of arrival: ambulatory Limitations: no limitations History of Present Illness HPI Narrative: 61 years old white male came from home by private car complaining of drooping in the left side of the face, started yesterday morning.. Patient also reports some rash on the left side of the neck and left upper back noticed 2 to 3 days ago. Patient also reports some pain at the left lower teeth started 6 days ago and started on amoxicillin at that time. By his dentist. Patient denies any numbness, tingling, weakness, slurred speech, headache, vision abnormality or balance abnormality Anywhere else except left face, no other central nervous system/ear or posterior fossa disease. Decreased lacrimation on the left side, poor eyelid motor function, tingling/numbness of mouth, buccal mucosa. Related Data Home Medications Medication Instructions Recorded Confirmed etanercept 50 mg/mL (1 mL) 50 mg subcut WEEKLY 10/17/19 03/19/22 subcutaneous cartridge (Enbrel Mini) methotrexate sodium 2.5 mg tablet 20 mg PO WEEKLY 10/17/19 03/19/22 [employer] 2 cap BYMOUTH HS 01/22/22 03/19/22 folic acid 1 mg tablet 1 mg PO DAILY 02/04/22 03/19/22 Allergies Allergy/AdvReac Type Severity Reaction Status Date / Time No Known Allergies Allergy Verified 04/02/22 15:23 Review of Systems Review of Systems: All systems reviewed & are unremarkable except as noted in HPI and below PMFSH Past Medical History Medical History Arthritis Claudication in peripheral vascular disease Essential (primary) hypertension Rheumatoid arthritis involving multiple sites with positive rheumatoid factor Right shoulder pain Surgical History Surgical History History of tonsillectomy History of total left hip replacement Subcapital fracture of neck of right femur Pinning in-situ 01/23/2022 Family History Family History Mother Family history of malignant neoplasm of breast Family history of malignant neoplasm of breast in first degree relative Heart failure Sibling Heart attack S/P CABG x 4 Social History Social History Smoking packs per day: 2 Smoking cigarettes per day: 40.0 Years smoked: 45 Smoking pack-years: 90.00 Smoking status: Former smoker Tobacco type: e-cigarettes/vaping Additional smoking assessment comments: Patient stopped cigarettes 05/06/21 started vaping Alcohol intake: current Drinks per week: 5 Alcohol use details: Patient drinks hard liquor on weekends. Substance use: never Additional occupation/education comments: [employer] Spiritual care concerns: No Exam Narrative: General appearance: Well-developed, well-nourished, unilateral paralysis of upper and lower face muscles. Skin: Normal color, blister like lesion at the left side of neck, left supra clavicular area and left upper back. Head: Normocephalic, nontraumatic Eyes: Clear conjunctiva ENT: Oropharynx normal, ears normal, nose normal Neck: Supple, nontender Chest and respiratory: Airway patent, no respiratory distress, no accessory muscle use Heart: Regular rate/rhythm Abdomen: Soft, nontender, no organomegaly, quiet bowel sounds Vascular: Normal peripheral pulses, normal capillary refill. Musculoskeletal: Normal range of motion, nontender back Neurologic: Alert and oriented ?3, left facial drooping, unable to close left eye, unable to raise left eyebrow
[2022-04-02] MEDS: predniSONE 20 MG TABLET 60 MG PO (15:58)
[2022-04-02] MEDS: valACYclovir HCL 500 MG TABLET 1000 MG PO (15:58)
[2022-04-02 16:25] LABS: Basophils Percent Auto 0.6 % (0.2-1.2); Eosinophils Absolute Auto 0.1 K/mm3 (0-0.3); Eosinophils Percent Auto 1.3 % (0-4.4); Hematocrit 42.6 % (42.0-52.0); Hemoglobin 13.6 g/dL (14.0-18.0); Immature Granulocyte Absolute 0.02 K/mm3 (0.00-0.031); Immature Granulocyte Percent A 0.3 % (0-0.5); Lymphocytes Percent Auto 22.3 % (18.3-44.2); Mean Corpuscular HGB Conc 31.9 g/dl (32-36); Mean Corpuscular Hemoglobin 32.2 pg (26-34); Mean Corpuscular Volume 100.9 fl (80-100); Mean Platelet Volume 9.6 fl (7.4-10.4); Monocytes Absolute Auto 0.4 K/mm3 (0.1-0.6); Monocytes Percent Auto 5.6 % (2.6-8.5); Neutrophils Absolute Auto 4.4 K/mm3 (1.3-6.7); Neutrophils Percent Auto 69.9 % (45.5-73.1); Platelet Count Result 247 k/mm3 (150-375); Red Blood Count 4.22 M/mm3 (4.6-6.20); Red Cell Distribution Width 15.1 % (11.5-14.5); White Blood Count 6.3 K/mm3 (4.5-10.0)
[2022-04-02 16:34] LABS: Alanine Aminotransferase 40 U/L (6-50); Albumin Level 4.1 g/dL (3.5-5.1); Alkaline Phosphatase 110 U/L (38-126); Anion Gap 9 mmol/L (8-16); Aspartate Amino Transferase 46 U/L (17-59); Bilirubin,Total 0.4 mg/dL (0.2-1.3); Blood Urea Nitrogen 18 mg/dL (9-20); Calcium 8.6 mg/dL (8.4-10.2); Carbon Dioxide 24 mmol/L (22-30); Chloride 104 mmol/L (98-107); Estimated CRCL calculation 63 ml/min; Estimated Glomerular Filt Rate > 60; Glucose 102 mg/dL (65-110); Potassium 4.3 mmol/L (3.4-5.0); Sodium 137 mmol/L (137-145)
[2022-04-02 17:11] VITALS: BP 155/89; PULSE 84; RESP 16; O2SAT 99
== END 2022-04-02 17:11 | disposition home or self-care (01) ==
PROVIDERS: Emergency Provider Emergency Medicine; PCP Family Medicine
DX: G51.0 Bell's palsy (principal); B02.9 Zoster without complications; M19.90 Unspecified osteoarthritis, unspecified site; I10 Essential (primary) hypertension
CPT/HCPCS: 36415; 70450; 80053; 85025; 99284; A9270; J7512

== ENCOUNTER 2022-04-21 15:30 | Outpatient (RCR) | payer BC, OTHER, SELFPAY ==
--- NOTE | 2022-04-09 17:13 | PTOPEVAL ---
PHYSICAL THERAPY EVALUATION AND DISCHARGE NOTIFICATION Thank you for referring Scottie Jerome to [facility]. After next visit his POC will be terminated. Please consider this note to be both evaluation and assessment and discharge notification. Further paperwork will be sent if further care needs are required.?Please review, sign, date and return this plan of care ASHLEY. I agree with and certify that the following plan of care is medically necessary. Referring Physician Date Attending Provider: Hieu Ramos MD Diagnosis right shoulder pain; rihgt hip fx with ORIF Additional Evaluation Detail dx with whiting's palsy on . Subjective Information right hip fx with ORIF: Query Text:As Reported By Patient/ fractured in January 2022 and Family received a hip pinning. he ambulates without a device today. States that the hip is doing well and doesn't give him trouble. right shoulder pain: reports chronic limitation at end range ROM and pain at the end range. Doing better since he has been off work. 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 Hopes to be able to retire. Self Report Pain Assessment Right Shoulder(s) Reported Pain Level 1 Pain Description Aching Pain Score Pain Score 1: Self Report Additional Pain Score Comments reports no pain in right hip and very little in right shoulder. Gross Upper Extremity Range of Motion limited end range right Comments shoulder ROM with pain and capsular restriction Lower Extremity Range of Motion General Lower Extremity Range of Motion Reason Not Measured WFL/Left,WFL/Right Lower Extremity Muscle Strength Testing Hip Strength Right Hip Flexion Strength 5 Normal Hip Abduction Strength 4+ Good + Knee Strength Right Knee Flexion Strength 5 Normal Knee Extension Strength 5 Normal Muscle Length Testing Latissmus Dorsi Muscle Length (R) Moderate Tightness Upper Trapezius Muscle Length (R) Mild Tightness Shoulder Internal Rotators Muscle Length (R) Moderate Tightness Shoulder External Rotators Muscle Length (R) Moderate Tightness Palpation posterior capsule tightness and decreased mobility into caudal direction; soft tissue restriction to internal rotation ROM Balance Assessment B
== END 2022-07-08 11:24 | disposition home or self-care (01) ==
LOC: ANHPT 15:30
PROVIDERS: PCP Family Medicine; Visit Provider Orthopaedic Surgery
DX: S72.011A Unspecified intracapsular fracture of right femur, initial encounter for closed fracture (principal)
CPT/HCPCS: 97110; 97140; 97162

== ENCOUNTER → 2022-04-28 08:33 | Outpatient (CLI) | payer BC, OTHER, SELFPAY ==
--- NOTE | ~2022-04-28 | DEXA_ITS ---
Bone Density Report Name: PAULA CINTRON Age: 61 Sex: Male Ethnicity: White Date of : 1960 Indication: prior fracture; rheumatoid arthritis; Referring Provider: JONATAN MIRAMONTES Study: Bone densitometry was performed. Exam Date: April 28, 2022 Accession number: [id number] Bone Density: Region BMD T-score Z-score Classification AP Spine (L1-L4) 0.843 -2.3 -1.5 Osteopenia World Health Organization criteria for BMD impression classify patients as: Normal (T-score at or above -1.0), Osteopenia (T-score between -1.0 and -2.5), or Osteoporosis (T-score at or below -2.5). Clinical Information Provided by Patient: Have had a previous hip or vertebral fracture Has had a low trauma fracture Has rheumatoid arthritis Patient maximum height was 70 Drinks caffeinated beverages Impression: The patient has low bone mass, based on the Total Spine T-score. The patient has risk factors, including: previous fracture. Discussion: INCREASED RISK OF FRACTURE DUE TO HISTORY OF LOW TRAUMA FRACTURE. The patient's previous fracture puts the patient at high risk of a future fracture. In untreated patients, the risk of osteoporotic fracture increases approximately two-fold for each 1.0 SD decrease in T-score. Low bone density is not the only risk factor for fracture; also consider factors such as patient's age, frailty or poor health, risk of falling, risk of injury, previous osteoporotic fracture, family history of osteoporosis, cigarette smoking, low body weight, etc. Not everyone with a low trauma fracture has osteoporosis; osteomalacia and other metabolic bone disorders should also be considered. Patients who have osteoporosis should be evaluated for specific diseases and conditions (secondary causes) that may cause or contribute to bone loss and fracture risk. National Osteoporosis Foundation (NOF) recommends pharmacologic intervention for patients with a prior low trauma hip or vertebral fracture regardless of BMD T-score. The patient should follow a healthful lifestyle (good nutrition with adequate calcium and vitamin D, and appropriate weight-bearing exercise). Follow-Up: Consider a repeat BMD and Vertebral Fracture Assessment (VFA) exam in 2 years or sooner if medically necessary, to reassess this patient's status. Reported by: BLANCA on 04/28/2022 8:55:00 AM. Reviewed, dictated and finalized at location ALuz LYNNE
== END ==
PROVIDERS: PCP Family Medicine; Visit Provider Family Medicine
DX: M05.79 Rheumatoid arthritis with rheumatoid factor of multiple sites without organ or systems involvement (principal); S72.011A Unspecified intracapsular fracture of right femur, initial encounter for closed fracture; X58.XXXA Exposure to other specified factors, initial encounter; M85.88 Other specified disorders of bone density and structure, other site
CPT/HCPCS: 77080

== ENCOUNTER 2022-07-28 09:00 | Outpatient (RCR) | payer BC, OTHER, SELFPAY ==
[2022-07-07 09:35] VITALS: BP_SYST 150
--- NOTE | 2022-07-07 10:27 | PTOPEVAL1 ---
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 Also receiving PT here for R ankle and L knee; Reported Pain Level Pain Score Self Report Additional Pain Score Comments pain range of 0-7/10 R shoulder: weak, like going to pop out of place; anterior shoulder; increase pain with lifting, driving; decrease pain with resting, change position; cannot lie on R shoulder for sleeping, does not wake him from sleeping; take ibuprofen PRN; occasionally use heat/ice Assessment PT Clinical Summary Scottie has the diagnosis of R shoulder pain. He reports gradual increase in pain, without injury to shoulder/arm. He is currently receiving PT here with another therapist for the diagnosis of Knee and ankle pain. He currently is not working due to s/p R hip ORIF and pain in knee and ankle. He had an xray in February of shoulder- mild OA lat humeral and AC jt. With the evaluation, he has decreased ROM and strength of R shoulder; flexion and IR increase pain; pain over anterior and lateral shoulder, with decreased use of R arm for lifting. He has poor gleno-humeral positioning with rounded and depressed position of shoulder. Skilled PT services are indicated for modalities to decrease pain and spasms, therapeutic exercises to increase ROM and strength of R shoulder, with correction of GH joint and posture, with education for progression of HEP and posture. Plan of Care Interventions Electrical Stimulation,Hot Pack/Cold Pack,Manual Therapy,Neuro Re-education,Patient/Caregiver Education,Therapeutic Activities,Therapeutic Exercise,Ultrasound,Other Other Interventions taping PT Services Ind
--- NOTE | 2022-07-18 16:28 | PCPTNOTE ---
charge correction: on 07-07-22 was charged for EVAL, and correction for REEVAL charge;
[2022-07-28 09:00] VITALS: BP_SYST 95
--- NOTE | 2022-07-28 09:42 | PTOPPROG ---
Assessment and note entered by Nereyda López, PT Evaluation Information Assessment Status Progress Diagnosis R shoulder pain Onset about 1 year ago Subjective Information Scottie reports: to have MRI of his shoulder next week and return to dr after that--begin of Aug; have more range in shoulder but still feels like it is popping and something overlapping; reaching forward and over hurts it; PAIN: Pain range 0-5/10 in R shoulder- anterior aspect- pops, and going to come out of the socket; ease pain by resting, stop using R arm; increase pain with driving 20 minutes; reaching up with R arm; sleeping OK; cannot lie on R side; Assessment PT Clinical Summary Scottie has received 5 PT sessions for the diagnosis of R shoulder pain. Compared to the initial evaluation: pain rating at the low end is same at 0/10 and high rating decreased from 7 to 5/10; continues to report popping of shoulder and pain at bicep proximal insertion; cannot lie on his R shoulder; lifting and driving limited due to shoulder pain; active and active assisted ranges of shoulder flexion, abduction and IR motions have decreased: ROM today: active in standing/active assisted in supine: flexion 110/130';abduction 95/95'; IR- reach behind back, palm to waist; all 3 motions increase pain. Goals were not achieved. He is scheduled for an MRI next week and a follow up dr appointment. He is to continue with his HEP and PT will be on HOLD until after dr appointment. IF PT is to continue, he will obtain a new script. Plan of Care PT Services Indicated Yes Treatment Frequency and HOLD until after dr appointment; await new orders Duration to continue if indicated These treatments will address the objective and functional deficits as defined above. The patient will be advanced safely and appropriately in order for the patient to progress towards his/her prior level of function. Additional exercises will be introduced and as well as a comprehensive home exercise program upon discharge, if needed, ?to ensure carryover of functional gains achieved in the clinic. This treatment plan has been reviewed and agreement upon by the patient.
--- NOTE | 2022-08-20 15:36 | PCPTNOTE ---
PHYSICAL THERAPY DISCHARGE 08-20-22 Attending Provider: Pedro Dorantes APN, for shoulder pain Venkateshmatt Naranjo MD, for R ankle and L knee pain Patient:Scottie Jerome Date of :1960 Mr. Jerome has not returned for PT since the shoulder reevaluation on 07-28-22. And the reevaluation for his R ankle and L knee pain on 07-29-22. I called him and he stated he has received an injection in his shoulder and does not feel like he needs anymore therapy for his shoulder. He stated he sees his arthritis dr about his ankle in a few weeks and does not think he needs anymore for his ankle. Discussed that I would discharge him and he agreed to discharge therapy for his shoulder and ankle. Thank you for referring Scottie to [facility].
== END 2022-08-21 08:30 | disposition home or self-care (01) ==
LOC: ANHPT 09:00
PROVIDERS: PCP Family Medicine; Visit Provider Nurse Practitioner
DX: Z48.89 Encounter for other specified surgical aftercare (principal); M25.511 Pain in right shoulder
CPT/HCPCS: 97110; 97112; 97140; 97161; 97164

== ENCOUNTER 2022-07-29 08:00 | Outpatient (RCR) | payer BC, OTHER, SELFPAY ==
--- NOTE | 2022-06-03 13:20 | PTOPEVAL1 ---
Assessment and note entered by Vera Casanova, PT Evaluation Information Assessment Status Evaluation Diagnosis rught ankle and L knee Reported Pain Level Pain Score 0,0: Self Report Assessment PT Clinical Summary Pt presents with multiple areas of deficit, greatest today being right ankle and left knee. Pt history includes RA, L THR, and R hip fx with pinning. Evaluation today shows swollen right ankle, decreased ROM of ankle, and poor ankle/foot complex alignment as well as mildly swollen left knee, decreased flexion L knee as compared to right, and LEFT ankle/foot supination in standing. Pt alignment overall also noted to be weight shifted to his left, right knee flexed, flattened lumbar lordosis, increased thoracic kyphosis, elevated L illiac crest, depressed right scapula, and compensatory scoliotic curvature. Most severely noted is the right ankle lack of mobility in the talocrual joint and in the subtalar joint. Discussed with pt today evaluation findings, and what therapy can do to improve his deficits, and thus his pain and function. Also discussed how lower body alignment effects alignment up the kinematic chain including hips, back, and shoulders. Pt was encouraged to procure medium firmness arch supports, to increase wear time slowly, and in use of ice for inflammation vs heat for general arthritic stiffness. Pt will benefit from physical therapy for focused hands-on techniques to improve joint function and ROM, education on exercises and modifications to improve pt pain and function, and assist pt in returning to a less painful, higher functional level. Plan of Care Interventions Check Out for Orthotic/Pr,Electrical Stimulation, Hot Pack/Cold Pack,Manual Therapy,Neuro Re- education,Paraffin Bath,Patient/Caregiver Educati, Therapeutic Activities,Therapeutic Exercise,Self- Care/Home Management,Ultrasound Other Interventions Taping/bracing PT Services Indicated Yes These treatments will address the objective and functional deficits as defined above. The patient will be advanced safely and appropriately in order for the patient to progress towards his/her prior level of function. Additional exercises will be introduced and as well as a comprehensive home exercise program upon discharge, if needed, ?to ensure carryover of functional gains achieved in the clinic. This treatment plan has been reviewed and agreement upon by the patient.
--- NOTE | 2022-06-03 13:20 | PTOPEVAL1 ---
Assessment and note entered by Vera Casanova, PT Evaluation Information Assessment Status Evaluation Diagnosis Right ankle and L knee pain Reported Pain Level Pain Score 0,0: Self Report at rest, Increases with activity Assessment PT Clinical Summary Pt presents with multiple areas of deficit, greatest today being right ankle and left knee. Pt history includes RA, L THR, and R hip fx with pinning. Evaluation today shows swollen right ankle, decreased ROM of ankle, and poor ankle/foot complex alignment as well as mildly swollen left knee, decreased flexion L knee as compared to right, and LEFT ankle/foot supination in standing. Pt alignment overall also noted to be weight shifted to his left, right knee flexed, flattened lumbar lordosis, increased thoracic kyphosis, elevated L illiac crest, depressed right scapula, and compensatory scoliotic curvature. Most severely noted is the right ankle lack of mobility in the talocrual joint and in the subtalar joint. Discussed with pt today evaluation findings, and what therapy can do to improve his deficits, and thus his pain and function. Also discussed how lower body alignment effects alignment up the kinematic chain including hips, back, and shoulders. Pt was encouraged to procure medium firmness arch supports, to increase wear time slowly, and in use of ice for inflammation vs heat for general arthritic stiffness. Pt will benefit from physical therapy for focused hands-on techniques to improve joint function and ROM, education on exercises and modifications to improve pt pain and function, and assist pt in returning to a less painful, higher functional level. Plan of Care Interventions Check Out for Orthotic/Pr,Electrical Stimulation, Hot Pack/Cold Pack,Manual Therapy,Neuro Re- education,Paraffin Bath,Patient/Caregiver Educati, Therapeutic Activities,Therapeutic Exercise,Self- Care/Home Management,Ultrasound Other Interventions Taping/bracing PT Services Indicated Yes These treatments will address the objective and functional deficits as defined above. The patient will be advanced safely and appropriately in order for the patient to progress towards his/her prior level of function. Additional exercises will be introduced and as well as a comprehensive home exercise program upon discharge, if needed, ?to ensure carryover of functional gains achieved in the clinic. This treatment plan has been reviewed and agreement upon by the patient.
--- NOTE | 2022-07-03 16:27 | BUPTOPEVAL1 ---
Assessment and note entered by Vera Casanova, PT Progress Report Assessment Status Progress Diagnosis right ankle and L knee Subjective Information Pt reports ankle used to lock up and this has improved since starting therapy Swelling appears reduced, and notes increased range in ankle. States also feels left leg is stronger with straight leg raises. Feels like therapy is helping Reported Pain Level Pain Score 0,0: Self Report Assessment PT Clinical Summary Pt has attended therapy consistently for right ankle and left knee issues. Pt demo's significant improved in AROM of right ankle in PF, Inv, and Ever. Still having difficulty with dorsiflexion AROM d/t poor posterior glide of talus. Pt also demo's visually improved edema to right ankle. Knee has mildly improved in range, cont to demo laterally deviating patella. Focus thus far has been 75% focus on ankle and 25% on left knee d/t offloading pressure from LLE to RLE w/ ankle improvement. Pt would thus benefit from continued therapy to continue progression and continue improvement. Plan of Care Interventions Check Out for Orthotic/Pr,Electrical Stimulation, Hot Pack/Cold Pack,Manual Therapy,Neuro Re- education,Paraffin Bath,Patient/Caregiver Ed, Therapeutic Activities,Therapeutic Exercise,Self- Care/Home Management,Ultrasound Other Interventions Taping/bracing PT Services Indicated Yes These treatments will address the objective and functional deficits as defined above. The patient will be advanced safely and appropriately in order for the patient to progress towards his/her prior level of function. Additional exercises will be introduced and as well as a comprehensive home exercise program upon discharge, if needed, ?to ensure carryover of functional gains achieved in the clinic. This treatment plan has been reviewed and agreement upon by the patient.
--- NOTE | 2022-07-24 16:31 | PCPTNOTE ---
Patient called & cancelled scheduled appointment this date due to insurance issues
--- NOTE | 2022-07-25 16:33 | PCPTNOTE ---
Late Entry treatment note due to therapist error. Note not entered at time of treatment Pt initiated therapy w/ [facility] to right ankle x 10 min. Reports he recieved vaccinations yesterday and feels that his arthritis is flaring up in his ankle today. Performed [place] IASM to ankle ant anterior talar joitn, framing of malleoli, sweeping and fanning of anterior tib, and peroneous muscles, posteriorly soleous and achilles insertion, soleous and gastroc muscle bodies PROM to ankle in all planes Talar and calcaneal distraction performed. Dorsiflexion with posterior talar glides and capsular end-feel without pain Ended session w. e-stim and ice to anterior and posterior ankle Premod setting with alternating freq 1-10hz for edema reduction x 15 min. Pt tolerated therapy without increased pain. Ankle ROM appears to be slowly improving. Cont POC progressing as tolerated.
--- NOTE | 2022-07-29 12:16 | PTOPPROG ---
Assessment and note entered by Vera Casanova, PT Assessment Status Progress Report Diagnosis right ankle and L knee Subjective Information Pt reports ankle used to lock up and this has improved since starting therapy. Is pablo to walk it out when it locks up now. Swelling superior to malleoli completely resolved, feels has more motion in right ankle. Reports left knee feels is worsening. RTD Bellman beginning of August, considering steroid shotin ankle. Assessment PT Clinical Summary Pt has attended therapy consistently for his ankle and knee issues. Primary focus with POC has been on ankle in order to allow offloading of stress on left knee. Today unfortuntely pt shows no objective improvement in active ROM of right ankle . However he shows improves ease of motion within available motion. Also demo resolution of swelling superior to malleoli. Cont to demo significant bony abnormality talocrural joint and malleoli likely related to RA diagnosis. Discussed with patient findings and return to doctor. Pt and therapist agreed to return to rheumatology and discuss additional ooptions to work together with therapy to attempt further improvement of ankle motion and discomfort. Will await pt call to return to therapy after MD evaluation of ankle joint related to arthritis. Plan of Care Interventions Check Out for Orthotic/Pr,Electrical Stimulation, Hot Pack/Cold Pack,Manual Therapy,Neuro Re- education,Paraffin Bath,Patient/Caregiver Educati, Therapeutic Activities,Therapeutic Exercise,Self- Care/Home Management,Ultrasound PT Services Indicated Yes Treatment Frequency and cont 1-2x weekly x 4-6 weeks, aggressive ROM and Duration mobilization right ankle These treatments will address the objective and functional deficits as defined above. The patient will be advanced safely and appropriately in order for the patient to progress towards his/her prior level of function. Additional exercises will be introduced and as well as a comprehensive home exercise program upon discharge, if needed, ?to ensure carryover of functional gains achieved in the clinic. This treatment plan has been reviewed and agreement upon by the patient.
--- NOTE | 2022-08-20 15:50 | PCPTNOTE ---
Patient:Scottie Jerome Date of :1960 PHYSICAL THERAPY DISCHARGE 08-20-22 Attending provider: Pedro Dorantes APN, for shoulder pain Venkateshmatt Naranjo MD, for R ankle and L knee pain Mr. Jerome has not returned for PT since the shoulder reevaluation on 07-28-22. And the reevaluation for his R ankle and L knee pain on 07-29-22. I called him and he stated he has received an injection in his shoulder and does not feel like he needs anymore therapy for his shoulder. He stated he sees his arthritis dr about his ankle in a few weeks and does not think he needs anymore for his ankle. Discussed that I would discharge him and he agreed to discharge therapy for his shoulder and ankle. Thank you for referring Scottie to [facility].
== END 2022-08-21 08:30 | disposition home or self-care (01) ==
LOC: ANHGOSHPT 08:00
PROVIDERS: PCP Family Medicine; Visit Provider Family Medicine
DX: M19.071 Primary osteoarthritis, right ankle and foot (principal); M17.12 Unilateral primary osteoarthritis, left knee
CPT/HCPCS: 97014; 97110; 97140; 97162; 97530; G0283

== ENCOUNTER 2022-08-08 06:41 | Outpatient (CLI) | payer BC, OTHER, SELFPAY ==
--- NOTE | ~2022-08-08 | MR_ITS ---
EXAMINATION: MR shoulder RT wo con DATE: 08/08/2022 07:33 INDICATION: Right shoulder pain. TECHNIQUE: Magnetic resonance imaging (MRI) of the right shoulder was performed without intravenous c ontrast. COMPARISON: Right shoulder radiograph 02/06/2022 FINDINGS: Coracoacromial arch: The acromion undersurface is curved in morphology (type II). Subacromial spurring is noted. There is mild acromioclavicular joint osteoarthritis. There is moderate subacromial/subdeltoid bursitis. Rotator cuff: There is a full-thickness tear of supraspinatus tendon measuring 6 mm anterior to posterior by 9 mm p roximal to distal. There is mild infraspinatus tendinopathy. Teres minor tendon is normal. There is m ild subscapularis tendinopathy. There is mild fatty atrophy of subscapularis muscle belly. Biceps tendon and glenoid labrum: There is a complete tear of proximal biceps tendon with scarred tendon in the bicipital groove. There is widespread tearing of the glenoid labrum. Fluid: There is a small glenohumeral joint effusion. Bones/cartilage: There is full-thickness cartilage loss of glenoid involving the central and posterior articular surfa ce. There is full-thickness cartilage loss of humeral head superomedially. IMPRESSION: 1. Full-thickness rotator cuff tear. 2. Severe glenohumeral joint chondrosis. 3. Mild acromioclavicular joint osteoarthritis. 4. Complete tear of proximal biceps tendon. 5. Small glenohumeral joint effusion and moderate subacromial/subdeltoid bursitis. Reviewed, dictated and finalized at location A. R DESK CALLER IMPRESSION: 1. Full-thickness rotator cuff tear. 2. Severe glenohumeral joint chondrosis. 3. Mild acromioclavicular joint osteoarthritis. 4. Complete tear of proximal biceps tendon. 5. Small glenohumeral joint effusion and moderate subacromial/subdeltoid bursit is.
== END 2022-08-08 06:42 | disposition home or self-care (01) ==
PROVIDERS: PCP Family Medicine; Visit Provider Nurse Practitioner
DX: M75.101 Unspecified rotator cuff tear or rupture of right shoulder, not specified as traumatic (principal); M19.011 Primary osteoarthritis, right shoulder; S46.211A Strain of muscle, fascia and tendon of other parts of biceps, right arm, initial encounter; X58.XXXA Exposure to other specified factors, initial encounter; M25.411 Effusion, right shoulder
CPT/HCPCS: 73221

== ENCOUNTER 2022-10-10 07:39 | Outpatient (CLI) | payer BC, OTHER, SELFPAY ==
[2022-10-10 08:16] LABS: Basophils Percent Auto 0.5 % (0.2-1.2); Eosinophils Absolute Auto 0.3 K/mm3 (0-0.3); Eosinophils Percent Auto 3.2 % (0-4.4); Hematocrit 39.5 % (42.0-52.0); Immature Granulocyte Absolute 0.04 K/mm3 (0.00-0.031); Immature Granulocyte Percent A 0.5 % (0-0.5); Lymphocytes Percent Auto 19.3 % (18.3-44.2); Mean Corpuscular HGB Conc 32.9 g/dl (32-36); Mean Corpuscular Hemoglobin 32.3 pg (26-34); Mean Corpuscular Volume 98.3 fl (80-100); Mean Platelet Volume 9.9 fl (7.4-10.4); Monocytes Absolute Auto 0.4 K/mm3 (0.1-0.6); Monocytes Percent Auto 4.9 % (2.6-8.5); Neutrophils Absolute Auto 5.6 K/mm3 (1.3-6.7); Neutrophils Percent Auto 71.6 % (45.5-73.1); Platelet Count Result 288 k/mm3 (150-375); Red Blood Count 4.02 M/mm3 (4.6-6.20); Red Cell Distribution Width 14.6 % (11.5-14.5); White Blood Count 7.8 K/mm3 (4.5-10.0)
[2022-10-10 08:29] LABS: Alanine Aminotransferase 28 U/L (6-50); Albumin Level 3.7 g/dL (3.5-5.1); Alkaline Phosphatase 103 U/L (38-126); Anion Gap 5 mmol/L (8-16); Aspartate Amino Transferase 27 U/L (17-59); Bilirubin,Total 0.4 mg/dL (0.2-1.3); Blood Urea Nitrogen 24 mg/dL (9-20); Calcium 8.7 mg/dL (8.4-10.2); Carbon Dioxide 27 mmol/L (22-30); Chloride 108 mmol/L (98-107); Cholesterol 155 mg/dL (0-200); Estimated Glomerular Filt Rate 56; Glucose 104 mg/dL (65-110); HDL Direct 37 mg/dL; Potassium 4.9 mmol/L (3.4-5.0); Sodium 140 mmol/L (137-145); Triglycerides 98 mg/dL (<150)
[2022-10-10 08:40] LABS: LDL Cholesterol Direct 78 mg/dL
[2022-10-10 08:57] LABS: Prostate Specific Antigen 0.6 ng/mL (< OR = 4.0)
[2022-10-10 09:33] LABS: Erythrocyte Sedimentation Rate 41 mm/hr (0-20)
[2022-10-15 04:47] LABS: HIV DNA PCR (Qual) Not Detected (Not Detected)
== END 2022-10-10 07:40 | disposition home or self-care (01) ==
LOC: ANHLAB 07:41
PROVIDERS: PCP Family Medicine; Visit Provider Family Medicine
DX: M05.79 Rheumatoid arthritis with rheumatoid factor of multiple sites without organ or systems involvement (principal); I10 Essential (primary) hypertension; Z72.51 High risk heterosexual behavior; Z13.220 Encounter for screening for lipoid disorders; Z12.5 Encounter for screening for malignant neoplasm of prostate
CPT/HCPCS: 36415; 80048; 80061; 80076; 84153; 84443; 85025; 85652; 87491; 87535; 87591; 87661; G0103

== ENCOUNTER 2022-11-13 01:21 | Day surgery (SDC) | payer BC, OTHER, SELFPAY ==
[2022-10-31 14:25] VITALS: BMI 21.9
--- NOTE | 2022-11-12 13:09 | PM.HPGS ---
History of Present Illness History of Present Illness Consent: Risks, benefits, and alternatives have been discussed and questions answered. Patient agrees to proceed with procedure. Chief complaint: neoplasm screening Narrative: Scottie Jerome is a 62 year old male was referred for colon cancer screening. He had a polyp removed about 7 years ago. Review of Systems Review of Systems: All systems reviewed & are unremarkable except as noted in HPI and below PMFSH Past Medical History Medical History Arthritis Arthritis of knee, left Arthritis of right ankle Pavon's palsy BMI (body mass index) 20.0-29.9 BMI 21.0-21.9, adult Claudication in peripheral vascular disease Essential (primary) hypertension High risk sexual behavior Left knee pain Osteopenia Rheumatoid arthritis involving multiple sites with positive rheumatoid factor Right shoulder pain Shingles rash Stress due to family tension Surgical History Surgical History History of tonsillectomy History of total left hip replacement Subcapital fracture of neck of right femur Pinning in-situ 01/23/2022 Family History Family History Mother Family history of malignant neoplasm of breast Family history of malignant neoplasm of breast in first degree relative Heart failure Sibling Heart attack S/P CABG x 4 Social History Social History Smoking packs per day: 2 Smoking cigarettes per day: 40.0 Years smoked: 45 Smoking pack-years: 90.00 Smoking status: Former smoker (currently uses vape pen) Tobacco type: e-cigarettes/vaping Additional smoking assessment comments: Patient stopped cigarettes 05/06/21 started vaping Alcohol intake: current Drinks per week: 4 Alcohol use details: Patient drinks hard liquor on weekends. Substance use: never Substance use type: other Living arrangements: with family Occupation/Education: occupation Additional occupation/education comments: [employer] Spiritual care concerns: No Meds Home Medications and Allergies Home Medications Medication Instructions Recorded Confirmed Type methotrexate sodium 2.5 mg tablet 20 mg PO WEEKLY 10/17/19 11/13/22 History folic acid 1 mg tablet 1 mg PO DAILY 02/04/22 11/13/22 History lisinopril 10 mg tablet See Rx Instructions .Route 03/17/22 11/13/22 Rx .COMPLEX #90 tabs metoprolol succinate 50 mg See Rx Instructions .Route 03/17/22 11/13/22 Rx tablet,extended release 24 hr .COMPLEX #90 tabs tadalafil 20 mg tablet See Rx Instructions .Route 03/21/22 11/13/22 Rx .COMPLEX #27 tabs nicotine 10 mg inhalation cartridge 1 inh inhalation Q2-4H PRN 04/10/22 11/13/22 Rx nicotine cravings #168 ea etanercept 50 mg/mL (1 mL) 50 mg subcut WEEKLY 11/10/22 11/13/22 History subcutaneous pen injector (Enbrel SureClick) Allergies Allergy/AdvReac Type Severity Reaction Status Date / Time No Known Allergies Allergy Verified 11/13/22 08:15 Exam Const: General: alert Orientation/consciousness: patient oriented x3 Resp: Auscultation: clear to auscultation bilaterally Cardio: Rhythm: regular rhythm GI: GI Palp: Yes Soft to palpation and No Tenderness to palpation present (GI) Neuro: General: patient oriented x3 Assessment and Plan Assessment and plan (1) Colon cancer screening: Code(s): Z12.11 - Encounter for screening for malignant neoplasm of colon Status: Acute Assessment and Plan: Colonoscopy with possible biopsy or polypectomy or cautery or injection of substances.
[2022-11-13 08:18] VITALS: BP 126/77; PULSE 70; RESP 16; TEMP 36.3; O2SAT 100
[2022-11-13] MEDS: LACTATED RINGERS 1,000 ML 150 ML IV CONT (08:28)
--- NOTE | 2022-11-13 08:30 | SUR.PREOP ---
0800 arrived with gauze dressings to bilateral forearms
--- NOTE | 2022-11-13 08:40 | WPDANESEPPF ---
Anes - Initial Pre Proc Eval Procedure: Operation Date: 11/13/22 09:00 Proposed Procedures p Screening Colonoscopy - Samuel March MD Date/Time: 11/13/22 08:40 Surgeon: Samuel March MD Pre Op Diagnosis: neoplasm screening Patient Data Age: 62 Gender: M Height: 1.78 m Weight: 68 kg Last Vital Signs Temp 97.4 F L 11/13/22 08:18 Pulse 70 11/13/22 08:18 Resp 16 11/13/22 08:18 BP 126/77 11/13/22 08:18 Pulse Ox 100 11/13/22 08:18 O2 Del Method Room Air 11/13/22 08:18 Allergies Allergy/AdvReac Type Severity Reaction Status Date / Time No Known Allergies Allergy Verified 11/13/22 08:15 Home Medications Medication Instructions Recorded Confirmed Type methotrexate sodium 2.5 mg tablet 20 mg PO WEEKLY 10/17/19 11/13/22 History folic acid 1 mg tablet 1 mg PO DAILY 02/04/22 11/13/22 History lisinopril 10 mg tablet See Rx Instructions .Route 03/17/22 11/13/22 Rx .COMPLEX #90 tabs metoprolol succinate 50 mg See Rx Instructions .Route 03/17/22 11/13/22 Rx tablet,extended release 24 hr .COMPLEX #90 tabs tadalafil 20 mg tablet See Rx Instructions .Route 03/21/22 11/13/22 Rx .COMPLEX #27 tabs nicotine 10 mg inhalation cartridge 1 inh inhalation Q2-4H PRN 04/10/22 11/13/22 Rx nicotine cravings #168 ea etanercept 50 mg/mL (1 mL) 50 mg subcut WEEKLY 11/10/22 11/13/22 History subcutaneous pen injector (Enbrel SureClick) Patient hx anesthesia problems: none Family hx anesthesia problems: none Results Review: All pre-operative results and documents have been reviewed as part of the pre-operative evaluation. [facility] Past Medical History Medical History Arthritis Arthritis of knee, left Arthritis of right ankle Pavon's palsy BMI (body mass index) 20.0-29.9 BMI 21.0-21.9, adult Claudication in peripheral vascular disease Essential (primary) hypertension High risk sexual behavior Left knee pain Osteopenia Rheumatoid arthritis involving multiple sites with positive rheumatoid factor Right shoulder pain Shingles rash Stress due to family tension Surgical History Surgical History History of tonsillectomy History of total left hip replacement Subcapital fracture of neck of right femur Pinning in-situ 01/23/2022 Family History Family History Mother Family history of malignant neoplasm of breast Family history of malignant neoplasm of breast in first degree relative Heart failure Sibling Heart attack S/P CABG x 4 Social History Social History Smoking packs per day: 2 Smoking cigarettes per day: 40.0 Years smoked: 45 Smoking pack-years: 90.00 Smoking status: Former smoker (currently uses vape pen) Tobacco type: e-cigarettes/vaping Additional smoking assessment comments: Patient stopped cigarettes 05/06/21 started vaping Alcohol intake: current Drinks per week: 4 Alcohol use details: Patient drinks hard liquor on weekends. Substance use: never Substance use type: other Living arrangements: with family Occupation/Education: occupation Additional occupation/education comments: [employer] Spiritual care concerns: No Anes - Eval Final PreProcedure Day of Procedure 11/13/22 08:40 Patient weight: normal Heart: regular rate and rhythm Lungs: clear to auscultation Airway: Mallampati scale class II Neurological: alert and oriented Last oral intake: >/= 8 hours ASA classification: II Emergent: no Anesthetic plan: proceed Anesthesia type and monitoring: general GIVS and standard monitoring Results Review: All pre-operative results and documents have been reviewed as part of the pre-operative evaluation. Informed Consent: The patient's anesthetic plan and its attendant risks and benefits were discussed wit
[2022-11-13 09:12] VITALS: BP 84/54; PULSE 65; RESP 21; O2SAT 98
[2022-11-13 09:22] VITALS: BP 80/52; PULSE 65; RESP 20; O2SAT 97
[2022-11-13 09:33] VITALS: BP 97/73; PULSE 64; RESP 23; O2SAT 100
== END 2022-11-13 09:39 | disposition home or self-care (01) ==
PROVIDERS: PCP Family Medicine; Visit Provider Internal Medicine Gastroenterology
PROC: 0DJD8ZZ Inspection of Lower Intestinal Tract, Via Natural or Artificial Opening Endoscopic (ICD-10-PCS; CPT 45378; principal; 2022-11-13 09:00)
DX: Z12.11 Encounter for screening for malignant neoplasm of colon (principal); K57.30 Diverticulosis of large intestine without perforation or abscess without bleeding; Z86.010 Personal history of colon polyps; I10 Essential (primary) hypertension; M06.89 Other specified rheumatoid arthritis, multiple sites; I70.219 Atherosclerosis of native arteries of extremities with intermittent claudication, unspecified extremity; F17.290 Nicotine dependence, other tobacco product, uncomplicated; Z79.620 Long term (current) use of immunosuppressive biologic
CPT/HCPCS: 45378; J2704; J7120

== ENCOUNTER 2025-02-02 12:35 | Emergency (ER) | payer OTHER, MEDICARE, SELFPAY ==
--- NOTE | ~2025-02-02 | CT_ITS ---
Procedure: CT hip LT wo con Ordering provider: Joseph Velasquez History: . greater troch fracture, eval periprosthetic fx . Comparison: None. Technique: Thin slice axial CT of the No IV contrast was given. Sagittal and coronal reformatted imag es were also obtained and reviewed. Radiation reduction technique utilized.The dose-length product wa s 417.91 mGy-cm. Findings: BONES: Fracture in the anterior proximal left femur extending to the greater trochanter with minimal displacement. JOINT SPACES: Left total knee arthroplasty. SOFT TISSUES: Normal IMPRESSION: Left total knee arthroplasty with fracture in the proximal left femur extending to the intertrochante noel area.. Reviewed, dictated and finalized at location A. IMPRESSION: Left total knee arthroplasty with fracture in the proximal left femur extending to the intertrochanteric area..
--- NOTE | ~2025-02-02 | XR_ITS ---
XR hip LT 2V w AP pelvis 02/02/2025 14:12 Indication: Left hip pain after fall Procedure: 3 views left hip including AP pelvis Comparison: 01/22/2022 Findings: There is a left total hip arthroplasty. There are 3 lag screws transfixing the right femora l neck traversing a healed femoral neck fracture. There is an acute fracture of the proximal aspect o f the left femur and extending to involve the greater trochanter. Prosthesis appears to be well seate d. Impression: 1: Acute minimally displaced fracture proximal aspect of the left femur. No evidence for loosening of the left hip arthroplasty. Reviewed, dictated and finalized at location A. Impression: 1: Acute minimally displaced fracture proximal aspect of the left femur. No scar dence for loosening of the left hip arthroplasty.
--- OUTSIDE RECORDS SUMMARY | 2025-02-02 12:38 | XMS_ITS | Referral Summary ---
Author Organization [facility] Address [address] [place] [address] Care Team Providers Care Waterside Worker Name Role Phone Venkatesh Naranjo MD Primary Care Provider [phone] Allergies No known active allergies Medications folic acid (FOLVITE) 1 mg tablet Active etanercept (EnbreL SureClick) 50 mg/mL (1 mL) pen injector INJECT 50 MG UNDER THE SKIN ONCE WEEKLY Active methotrexate 2.5 mg tablet 8 tabs Active lisinopriL (PRINIVIL,ZESTRI L) 10 mg tablet Take 1 tablet (10 mg total) by mouth daily Active metoprolol XL (TOPROL-XL) 50 mg 24 hr tablet Take 1 tablet (50 mg total) by mouth daily Active Active Problems Problem Noted Date Diagnosed Date Atrial premature depolarization 04/03/2023 Ventricular bigeminy 04/03/2023 Claudication 11/16/2019 Assessment & Plan (11/16/2019 9:09 AM CDT): Patient has non disabling left lower extremity claudication. Have recommended initial trial of conservative management which includes dedicated exercise regimen which was explained risk factor modification which includes smoking cessation. Will follow-up 3-6 months for repeat evaluation. Essential hypertension 11/16/2019 Assessment & Plan (11/16/2019 9:09 AM CDT): Per patient blood pressure is controlled. Continue antihypertensive regimen per primary care physician Lumbar radiculopathy 11/16/2019 Other assisted (current) drug therapy 0 Positive anti-CCP test 11/16/2019 Rheumatoid arthritis 11/16/2019 Tuberculosis screening 11/16/2019 Tobacco abuse 11/16/2019 Assessment & Plan (11/16/2019 9:09 AM CDT): Greater than 3 minutes was spent on smoking cessation and Education. Patient has obtained patch is in hopes to quit within 6 months. Closed fracture of phalanx of thumb 04/16/2014 Crushing injury of left hand 04/16/2014 Stopped smoking 11/15/2013 Arthralgia of hip 04/16/2012 Immunizations Immunization Administration Dates Next Due Influenza, Quadrivalent, Natali l Culture-based MDCK, Antibiotic Free, Intramuscular 06/07/2018 TD Preservative Free 09/07/2000 Tdap 03/17/2015,04/04/2014,03/21/2010 Social History Tobacco Use Types Packs/Day Years Used Date Smoking Tobacco: Every Day Tobacco Cessation:Ready to Q uit: Not Asked; Counseling Given: Not Answered Personal Safety Answer Date Recorded Getting School Help Needed Not on file 09/10 Sex and Gender Information Value Date Recorded Sex Assigned at Not on file 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 Gender Identity Not on file Sexual Orientation Not on file Last Filed Vital Signs Vital Sign Reading Time Taken Comments Blood Pressure 120/70 04/03/2023 2:01 PM CDT Pulse 54 04/03/2023 2:01 PM CDT Temperature - - Respiratory Rate - - Oxygen Saturation 94% 04/03/2023 2:01 PM CDT Inhaled Oxygen Concentration - - Weight 64.4 kg (142 lb) 04/03/2023 2:01 PM CDT Height 177.8 cm (5' 10) 04/03/2023 2:01 PM CDT Body Mass Index 20.37 04/03/2023 2:01 PM CDT Plan of Treatment Not on file Insurance [employer] [place] [employer] BL[employer] ACC CHOICE [facility] Care Teams Waterside Worker Relationship Specialty Start Date End Date Venkatesh Naranjo MD PCP - General Family Medicine 11/02/19
--- OUTSIDE RECORDS SUMMARY | 2025-02-02 12:38 | XMS_ITS ---
Author Organization [facility] Address [address] [place], [place] [id number] Care Team Providers Care Heavy Equipment Diesel Mechanic Name Role Phone Kasandra Naranjon Primary Care Provider Sky Bran Unavailable [phone] RESULTS Component Value Reference Range Notes Sed Rate - Westergren Reviewed date:01/13/2025 02:08:09 PM Interpretation: Performing Lab:[facility], [address], Phone - [phone], [facility] Notes/Report: Sedimentation Rate-Westergren 79 0-30 mm/hr C-Reactive Protein, Quant Reviewed date:01/13/2025 02:08:09 PM Interpretation: Performing Lab:[facility], [address], Phone - [phone], [facility]/Report: C-Reactive Protein, Quant 66 0-10 mg/L REASON FOR VISIT Simponi 3 v MEDICATIONS Medication SIG (Take, Route, Fr equency, Duration) Notes Start Date End Date Status metoprolol 1 tab(s) orally once a day Active Simponi Aria Active lisinopril 10 mg 1 tab(s) orally once a day Active VITAL SIGNS BMI 21.38 kg/m2 01/11/2025 Blood pressure systolic 150 mm Hg 01/12/20 25 Blood pressure diastolic 88 mm Hg 025 Heart Rate 93 /min 01/11/2025 Height 70 in 01/11/2025 Temperature 98.5 degrees Fahrenheit 01/12/20 25 Weight 149 lbs 01/11/2025 Encounters Encounter Location Date Provider Diagnosis [facility], INF [address] [facility], [facility] [address] [place], [place] [id number] 01/11/2025 Sky Gomez Rheumatoid arthritis of multiple sites without organ or system involvement with positive rheumatoid factor M05.79 and 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 Z79.899 ASSESSMENTS Encounter Date Diagnosis Assessment Notes Treatment Notes Treatment Clinical Notes 01/11/2025 Rheumatoid arthritis of multiple sites without organ or system involvement with positive rheumatoid factor (ICD-10 - M05.79) 01/11/2025 Other nursing home (current) drug therapy (ICD-10 - Z79.899) PLAN OF TREATMENT Next Appt Details Provider Name:Sky Gomez, 07:30:00 AM, [address], [facility] [address], [place], [place], [phone], Provider Name:Marisol yu, 04/10/2025 08:40:00 AM, [address] [facility], [facility] [address], [place], [place], [phone], Procedure Notes * Category Sub-Category Detail Notes Infusion Teaching/Discharge Reviewed written dis charge instructions yes Patient voiced understanding yes Ready for discharge yes Ride Needed no Tolerated infusion yes Time of Discharge 0840 Total Infused 100mL Infusion Flowsheet 1 Temp 98.5 Time 0750 Pulse 93 Respiration Rate 18 Blood Pressure 150/88 IV Site NA Patient State oriented, alert Rate ml/hr pump Infusion Flowsheet 2 Time 0800 infusi on started IV Site WNL, intact Patient State alert, oriented Rate ml/hr 200ml/hr Infusion Flowsheet 3 Temp 98.5 Time 0830 infusion comple te Pulse 90 Respiration Rate 18 Blood Pressure 144/82 IV Site WNL Patient State alert, oriented Rate ml/hr discontinued Simponi Aria Infusion Treatment Number 6 PPD Negative Infection/Date/Treatment Denies Live Vaccines Denies Recent Procedures Denies Previous Reactions Denies Premeds./Time/Route Denies Number of Vials 3 Simponi Aria Lot Number [id number] EXP 05/09 027 (3-50mg VIALS) IV Site RAC Site Appearance Without swelling, re dness Size of Catheter 24 gauge Type of Catheter Peripheral # of Attempts 1 Deaccessed IV cath removed, int act. Labs Drawn Yes Total amount to be infused 149lbs/2.2kg= [id number]= 136mg Dosage Wasted 14mg
--- OUTSIDE RECORDS SUMMARY | 2025-02-02 12:38 | XMS_ITS | Clinical Summary ---
Author Organization [facility] Address [address] [place] [address] Care Team Providers Care Vacation Sales Advisor Name Role Phone Venkatesh Naranjo MD Primary Care Provider [phone] Allergies No known active allergies Medications folic [...] primary care physician Lumbar radiculopathy 11/16/2019 Other correction (current) drug therapy 0 Positive anti-CCP test [...] 06/07/2018 TD Preservative Free 09/07/2000 Tdap 03/17/2015,04/04/2014,03/21/2010 Surgical History Surgery Date Site/Laterality Comments REVISION TOTAL HIP ARTHROPLASTY 09/07/2012 - 09/06/2013 Left Medical History Medical History Date Comments Encounter for other orthopedic aftercare Orthopedic aftercare - (Added by TW Conv) Family History Medical History Relation Name Comments No Known Problems Father Breast cancer Mother Relation Name Status Comments Father Mother Social History Tobacco Use Types Packs/Day Years Used Date Smoking Tobacco: Every Day Tobacco Cessation:Ready to Q uit: Not Asked; Counseling Given: Not Answered Personal Safety Answer Date Recorded Getting School Help Needed Not on file 09/10 Sex and Gender Information Value Date Recorded Sex Assigned at Not on file 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 Gender Identity Not on file Sexual Orientation Not on file Obstetrics History Last Filed Vital Signs Vital Sign Reading [...] 04/03/2023 2:01 PM CDT Plan of Treatment Health Maintenance Due Date Last Done Comments Colon Cancer Screening-Colonoscopy 1960 Depression Screening 1960 Fall Risk Assessment 1960 Hepatitis C Screening 1960 Prostate Cancer Screening-PSA 1960 Hepatitis B Screening 1976 Pneumococcal vaccine 65+ (1 of 2 - PCV) 1977 Zoster Vaccine (1 of 2) 1977 Abdominal Aortic Aneurysm (A AA) Screen 2023 Well Visit 65+ 2023 DTaP/Tdap/Td Vaccine (4 - Td or Tdap) 03/17/2025 03/17/2015, 04/04/2014, 03/21/2010, Additional history exists Influenza Vaccine (Season Ended) 2025 06/07/[address] [facility] ANTHEM ACCESS Care Teams Vacation Sales Advisor Relationship Specialty Start Date End Date Venkatesh Naranjo MD PCP - General Family Medicine 11/02/19
--- OUTSIDE RECORDS SUMMARY | 2025-02-02 12:38 | XMS_ITS | Patient Health Record ---
Author Organization [facility] Address [address] [place], [place] [id number] Care Team Providers Care Golf Course Assistant Name Role Phone Venkatesh Naranjo Primary Care Provider Unavailabl brandie SzymanskiSky diego Unavailable [phone] Mairsol Shea Unavailable ALLERGIES No Known Allergies RESULTS Component Value Reference Range Notes AST (SGOT) Reviewed date:03/01/2024 11:34:10 AM Interpretation: Performing Lab:[facility], Phone - [phone], [facility] Notes/Report: AST (SGOT) 10 0-40 IU/L Creatinine, Serum Reviewed date:03/01/2024 11:34:10 AM Interpretation: Performing Lab:[employer] [facility] [facility], Phone - [phone], Director - [facility] Notes/Report: Creatinine 1.14 0.76-1.27 mg/dL eGFR 71 >59 mL/min/1.73 ALT (SGPT) Reviewed date:03/01/2024 11:34:10 AM Interpretation: Performing Lab[facility], Phone - [phone], Director - [facility] Notes/Report: ALT (SGPT) 6 0-44 IU/L CBC With Differential/Platel et Reviewed date:03/01/2024 11:34:10 AM Interpretation: Performing Lab:[address], [place], Phone - [phone], Director - [facility] Notes/Report: WBC 11.3 3.4-10.8 x10E3/uL RBC 3.96 4.14-5.80 x10E6/uL Hemoglobin 12.3 13.0-17.7 g/dL Hematocrit 37.3 37.5-51.0 % MCV 94 79-97 fL MCH 31.1 26.6-33.0 pg MCHC 33.0 31.5-35.7 g/dL RDW 14.2 11.6-15.4 % Platelets 341 150-450 x10E3/uL Neutrophils 79 Not Estab. % Lymphs 13 Not Estab. % Monocytes 5 Not Estab. % Eos 3 Not Estab. % Basos 0 Not Estab. % Immature Cells Neutrophils (Absolute) 8.8 1.4-7.0 x10E3/uL Lymphs (Absolute) 1.5 0.7-3.1 x10E3/uL Monocytes(Absolute) 0.6 0.1-0.9 x10E3/uL Eos (Absolute) 0.4 0.0-0.4 x10E3/uL Baso (Absolute) 0.1 0.0-0.2 x10E3/uL Immature Granulocytes 0 Not Estab. % Immature Grans (Abs) 0.0 0.0-0.1 x10E3/uL NRBC Hematology Comments: Sed Rate - [place] Reviewed date:03/01/2024 11:34:10 AM Interpretation: Performing Lab:[facility], Phone - [phone], [facility] Notes/Report: Sedimentation Rate-[place] 52 0-30 mm/hr C-Reactive Protein, Quant Reviewed date:03/01/2024 11:34:10 AM Interpretation: Performing Lab:[facility], Phone - [phone], Director - [facility] Notes/Report: C-Reactive Protein, Quant 39 0-10 mg/L AST (SGOT) Reviewed date:07/11/2024 02:03:07 PM Interpretation: Performing Lab:[employer], Phone - [phone], Director [facility] Notes/Report: AST (SGOT) 15 0-40 IU/L Creatinine, Serum Reviewed date:07/11/2024 02:03:07 PM Interpretation: Performing Lab:[facility], Phone - [phone], [facility] Notes/Report: Creatinine 1.05 0.76-1.27 mg/dL eGFR 79 >59 mL/min/1.73 ALT (SGPT) Reviewed date:07/11/2024 02:03:07 PM Interpretation: Performing Lab:[facility], Phone - [phone], [facility] - [facility] Notes/Report: ALT (SGPT) 12 0-44 IU/L CBC With Differential/Platel et Reviewed date:07/11/2024 02:03:07 PM Interpretation: Performing Lab:[facility], Phone - [phone], Director - [facility] Notes/Report: WBC 10.9 3.4-10.8 x10E3/uL RBC 4.39 4.14-5.80 x10E6/uL Hemoglobin 14.7 13.0-17.7 g/dL Hematocrit 43.9 37.5-51.0 % MCV 100 79-97 fL MCH 33.5 26.6-33.0 pg MCHC 33.5 31.5-35.7 g/dL RDW 13.2 11.6-15.4 % Platelets 303 150-450 x10E3/uL Neutrophils 77 Not Estab. % Lymphs 14 Not Estab. % Monocytes 5 Not Estab. % Eos 3 Not Estab. % Basos 1 Not Estab. % Immature Cells Neutrophils (Absolute) 8.5 1.4-7.0 x10E3/uL Lymphs (Absolute) 1.5 0.7-3.1 x10E3/uL Monocytes(Absolute) 0.5 0.1-0.9 x10E3/uL Eos (Absolute) 0.3 0.0-0.4 x10E3/uL Baso (Absolute) 0.1 0.0-0.2 x10E3/uL Immature Granulocytes 0 Not Estab. % Immature Grans (Abs) 0.0 0.0-0.1 x10E3/uL NR Hematology Comments: Sed Rate - Sonya Reviewed date:07/12/2024 10:45:16 AM Interpretation: Performing Lab:[facility], Phone - [phone], [facility] Notes/Report: Sedimentation Rate-Sonya 56 0-30 mm/hr AST (SGOT) Reviewed date:11/11/2024 03:43:23 PM Interpretation: Performing Lab:[address], Phone - [phone], [facility] Notes/Report: AST (SGOT) 15 0-40 IU/L Creatinine, Serum Reviewed date:11/11/2024 03:43:23 PM Interpretation: Performing Lab:[facility], Phone - [phone], [facility] Notes/Report: Creatinine 1.13 0.76-1.27 mg/dL eGFR 72 >59 mL/min/1.73 ALT (SGPT) Reviewed date:11/11/2024 03:43:23 PM Interpretation: Performing Lab:[address], Phone - [phone], [facility] Notes/Report: ALT (SGPT) 11 0-44 IU/L CBC With Differential/Platel et Reviewed date:11/11/2024 03:43:23 PM Interpretation: Performing Lab:[address], Phone - [phone], [facility] Notes/Report: WBC 10.6 3.4-10.8 x10E3/uL RBC 4.62 4.14-5.80 x10E6/uL Hemoglobin 15.3 13.0-17.7 g/dL Hematocrit 46.0 37.5-51.0 % MCV 100 79-97 fL MCH 33.1 26.6-33.0 pg MCHC 33.3 31.5-35.7 g/dL RDW 12.7 11.6-15.4 % Platelets 357 150-450 x10E3/uL Neutrophils 76 Not Estab. % Lymphs 17 Not Estab. % Monocytes 4 Not Estab. % Eos 2 Not Estab. % Basos 1 Not Estab. % Immature Cells Neutrophils (Absolute) 8.0 1.4-7.0 x10E3/uL Lymphs (Absolute) 1.8 0.7-3.1 x10E3/uL Monocytes(Absolute) 0.4 0.1-0.9 x10E3/uL Eos (Absolute) 0.2 0.0-0.4 x10E3/uL Baso (Absolute) 0.1 0.0-0.2 x10E3/uL Immature Granulocytes 0 Not Estab. % Immature Grans (Abs) 0.0 0.0-0.1 x10E3/uL NRBC Hematology Comments: Sed Rate - [place] Reviewed date:11/11/2024 03:43:23 PM Interpretation: Performing Lab:[facility] [address], Phone - [phone], Director - [facility] Notes/Report: Sedimentation Rate-[facility] 76 0-30 mm/hr QUANTIFERON(R)-TB GOLD PLUS, 1 TUBE Reviewed date:11/11/2024 03:43:23 PM Interpretation: Performing Lab:[facility] [place], [address] [place] [address], Phone - [phone], Director - [facility] Notes/Report: QuantiFERON Incubation Incubation performed. QuantiFERON-TB Gold Plus Negative Negative No response to M tuberculosis antigens detected. Infection with M tuberculosis is unlikely, but high risk individuals should be considered for additional testing (ATS/IDSA/CDC Clinical Practice Guidelines, 2017). The reference range is an Antigen minus Nil result of <0.35 IU/mL. Chemiluminescence immunoassay methodology QuantiFERON Criteria QuantiFERON-TB Gold Plus is a qualitative indirect test for M tuberculosis infection (including disease) and is intended for use in conjunction with risk assessment, radiography, and other medical and diagnostic evaluations. The QuantiFERON-TB Gold Plus result is determined by subtracting the Nil value from either TB antigen (Ag) value. The Mitogen tube serves as a control for the test. QuantiFERON TB1 Ag Value 0.04 QuantiFERON TB2 Ag Value 0.03 QuantiFERON Nil Value 0.02 QuantiFERON Mitogen Value 5.17 Sed Rate - [place] Reviewed date:01/13/2025 02:08:09 PM Interpretation: Performing Lab:[employer], [address] [facility] [place], Phone - [phone], Director - Holli Notes/Report: Sedimentation Rate-[place] 79 0-30 mm/hr C-Reactive Protein, Quant Reviewed date:01/13/2025 02:08:09 PM Interpretation: Performing Lab:[facility] [place], [address] [facility], [place], Phone - [phone], Director - Holli Notes/Report: C-Reactive Protein, Quant 66 0-10 mg/L REASON FOR REFERRAL Reason simponi aria Diagnosis 1 Rheumatoid arthritis of multiple sites without organ or system involvement with positive rheumatoid factor (M05.79) Referral Organization [facility]. Referring Provider First Name Sky Referring Provider Last Name Jason Referring Provider Speciality Rheumatolo gy Referred Organization [facility]. 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 (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) Active confirmed 653467116 Problem Rheumatoid arthritis of multiple sites without organ or system involvement with positive rheumatoid factor (M05.79) Active confirmed 163110546 Problem Screening examination for pulmonary tuberculosis (Z11.1) Active confirmed 847781933 Problem Positive anti-CCP test (R76.8) Active confirmed 740161153 Problem BP (high blood pressure) (I10) Active confirmed 85786211 Problem Smoker (F17.200) Active confirmed 49954 002 Problem Lumbar radiculopathy, acute (M54.16) Active confirmed 062875182 Problem Claudication (I73.9) Active confirmed 32211937 VITAL SIGNS Heart Rate 93 /min 01/11/2025 Temperature 98.5 degrees Fahrenheit 01/11/2025 Blood pressure diastolic 88 mm Hg 01/11/2025 Height 70 in 01/11/2025 Blood pressure systolic 150 mm Hg 01/11/2025 Weight 149 lbs 01/11/2025 BMI 21.38 kg/m2 01/11/2025 Encounters Encounter Location Date Provider Diagnosis [facility] [address], [facility] [address] [place], [place] [id number] 04/15/2024 Akgun Jason Rheumatoid arthritis of multiple sites without organ or system involvement with positive rheumatoid factor M05.79 [facility] [address], [facility] [address] [place], [place] [phone] 05/13/2024 Akgun Jason Rheumatoid arthritis of multiple sites without organ or system involvement with positive rheumatoid factor M05.79 [facility] [address], [address] [id number] 07/08/2024 Akgun Jason Rheumatoid arthritis of multiple sites without organ or system involvement with positive rheumatoid factor M05.79 and Other ferry terminal agent (current) drug therapy Z79.899 [facility] [address], [address] [id number] 09/14/2024 Akgun Jason Rheumatoid arthritis involving multiple sites with positive rheumatoid factor M05.79 [facility] [address], [address] [id number] 11/09/2024 Akgun Jason Rheumatoid arthritis of multiple sites without organ or system involvement with positive rheumatoid factor M05.79 ; Other ferry terminal agent (current) drug therapy Z79.899 and Screening examination for pulmonary tuberculosis Z11.1 [facility] [address], [address] [id number] 01/11/2025 Akgun Jason Rheumatoid arthritis of multiple sites without organ or system involvement with positive rheumatoid factor M05.79 and Other shelter (current) drug therapy Z79.899 [facility], [address], [address] [place] [id number] 02/26/2024 Marisol Scheidemantel Rheumatoid arthritis of multiple sites without organ or system involvement with positive rheumatoid factor M05.79 ; Other shelter (current) drug therapy Z79.899 and BP (high blood pressure) I10 [facility] [address] [place] [address], [address] [id number] 08/15/2024 Marisol Scheidemantel Rheumatoid arthritis of multiple sites without organ or system involvement with positive rheumatoid factor M05.79 ; Other ferry terminal agent (current) drug therapy Z79.899 and BP (high blood pressure) I10 [facility] [address] [place] [address], [address] [id number] 12/12/2024 Marisol Scheidemantel Rheumatoid arthritis of multiple sites without organ or system involvement with positive rheumatoid factor M05.79 ; Other ferry terminal agent (current) drug therapy Z79.899 ; Screening examination for pulmonary tuberculosis Z11.1 and BP (high blood pressure) I10 [facility] [address] [place] [address], [address] [id number] 02/26/2024 Sky Gomez [facility] [address] [place] [id number] 03/01/2024 Sky Gomez [facility] [address] [place] [address], [address] [id number] 07/12/2024 Sky Gomez [facility] [address] [place] [address], [address] [id number] 08/15/2024 Sky Gomez [facility] [address] [place] [id number] 01/13/2025 Sky Gomez ASSESSMENTS Encounter Date Diagnosis Assessment Notes Treatment Notes Treatment Clinical Notes 04/15/2024 Rheumatoid arthritis of multiple sites without organ or system involvement with positive rheumatoid factor (ICD-10 - M05.79) 05/13/2024 Rheumatoid arthritis of multiple sites without organ or system involvement with positive rheumatoid factor (ICD-10 - M05.79) 07/08/2024 Other shelter (current) drug therapy (ICD-10 - Z79.899) 07/08/2024 Rheumatoid arthritis of multiple sites without organ or system involvement with positive rheumatoid factor (ICD-10 - M05.79) 09/14/2024 Rheumatoid arthritis involving multiple sites with positive rheumatoid factor (ICD-10 - M05.79) 11/09/2024 Other ferry terminal agent (current) drug therapy (ICD-10 - Z79.899) 11/09/2024 Rheumatoid arthritis of multiple sites without organ or system involvement with positive rheumatoid factor (ICD-10 - M05.79) 01/11/2025 Other ferry terminal agent (current) drug therapy (ICD-10 - Z79.899) 01/11/2025 Rheumatoid arthritis of multiple sites without organ or system involvement with positive rheumatoid factor (ICD-10 - M05.79) 02/26/2024 Other ferry terminal agent (current) drug therapy (ICD-10 - Z79.899) 02/26/2024 Rheumatoid arthritis of multiple sites without organ or system involvement with positive rheumatoid factor (ICD-10 - M05.79) 08/15/2024 Other shelter (current) drug therapy (ICD-10 - Z79.899) 08/15/2024 Rheumatoid arthritis of multiple sites without organ or system involvement with positive rheumatoid factor (ICD-10 - M05.79) 12/12/2024 Other shelter (current) drug therapy (ICD-10 - Z79.899) 12/12/2024 Rheumatoid arthritis of multiple sites without organ or system involvement with positive rheumatoid factor (ICD-10 - M05.79) 11/09/2024 Screening examination for pulmonary tuberculosis (ICD-10 - Z11.1) 02/26/2024 BP (high blood pressure) (ICD-10 - I10) 08/15/2024 BP (high blood pressure) (ICD-10 - I10) 12/12/2024 Screening examination for pulmonary tuberculosis (ICD-10 - Z11.1) 12/12/2024 BP (high blood pressure) (ICD-10 - I10) PLAN OF TREATMENT Pending Test Test Name Order Date AST (SGOT) 09/22/2016 AST (SGOT) 12/22/2016 Creatinine, Serum 09/22/2016 Creatinine, Serum 12/22/2016 ALT (SGPT) 09/22/2016 ALT (SGPT) 12/22/2016 CBC With Differential/Platelet 2 CBC With Differential/Platelet 7 CBC With Differential/Platelet 7 Sed Rate - [place] 12/22/2016 Sed Rate - [place] 09/22/2016 AST (IH) 09/26/2019 AST (IH) 06/20/2013 AST (IH) 06/18/2021 ALT (IH) 06/18/2021 ALT (IH) 09/26/2019 ALT (IH) 06/20/2013 Creatinine (IH) 06/18/2021 Creatinine (IH) 09/26/2019 Creatinine (IH) 06/20/2013 X ray : Hand left- outside order 022 X ray : Hand right- outside order 2021 QUANTIFERON(R)-TB GOLD-quest only 2016 QUANTIFERON(R)-TB GOLD-quest only 2016 QUANTIFERON(R)-TB GOLD-quest only 2016 X ray : Knee, right 3 views- outside ord er 02/24/2022 X ray : Knee, left, 3 views- outside ord er 02/24/2022 PPD 02/20/2014 PPD 12/10/2015 Lab slip given 09/22/2016 lab slip given 12/22/2016 X ray : Ankle, left- outside order 02/24 X ray : Ankle, right- outside order 02/06 MRI : Spine, Lumbar 12/26/2019 QuantiFERON-TB Gold Plus 08/02/2018 Next Appt Details Provider Name:Sky Gomez, 07:30:00 AM, [address] [facility], [facility] [address], [place], [place], [phone], Provider Name:Marisol yu, 04/10/2025 08:40:00 AM, [address] [facility], [facility] [address], [place], [place], [phone], Insurance Providers Payer Name Payer Address Payer Phone Subscriber Number Group Number Insured Name Patient Relationship to Insured Coverage Start Date Coverage End Date [employer] [address] [facility] PIPPA [phone] [id number] Scottie Jerome Self - patient is the insured 4 MEDICAL (GENERAL) HISTORY Medical History History ICD Code bruises easily Ringing in ears swelling of ankles/feet broken 3 ribs rt /2007Sep, 2012 hypertension March, left hand injury at work with fracture distal left thumb Apr, 2015 left heel fracture Weight loss, abnormal Prepatellar bursitis Sep, 2016 kidney stone Former cigarette smoker Electronic cigarette use Surgical History Surgery Date(Month/Year) Right hip fx, 3 pins January 2022 LITHOTRIPSY oct, 2016 lithotripsy Sep, 2016 Left total hip arthroplasty per Dr. Torres [place] 09/13/12 kidney biopsy Right elbow surgery Hospitalization History Reason Date(Month/Year)
--- OUTSIDE RECORDS SUMMARY | 2025-02-02 12:38 | XMS_ITS | Patient Health Record ---
Author Organization [facility] Address [address] [facility] [place] [address] Care Team Providers Care Abrasive Band Winder Name Role Phone Raul De La O Unavailable [phone] REASON FOR REFERRAL No Information MEDICATIONS Medication SIG (Take, Route, Frequency, Duration) Notes Start Date End Date Status Lisinopril 10 MG (Prior Auth#:[id number]) Oral for 90 Active Metoprolol Succinate ER 50 MG (Prior Auth#:[id number]) Oral for 90 Active Methotrexate 2.5 MG (Prior Auth#:[id number]) Oral for 90 Active SOCIAL HISTORY Tobacco Use: Social History Observation Description Date Details (start date - stop date) Current Smoker NA - NA Sex Assigned At : Social History Observation Description Sex Assigned At Unknown Tobacco Use/Smoking Question Answer Notes Are you a current smoker PROBLEMS Problem Type ICD Code Onset Dates Problem Status W/U Status Risk SNOMED Code Notes Problem Radiculopathy, lumbosacral region (M54.17) Active confirmed 0895331 Problem Spinal stenosis, lumbar region with neurogenic claudication (M48.062) Active confirmed 93041378 PLAN OF TREATMENT No Information MEDICAL (GENERAL) HISTORY Medical History History ICD Code hypertension kidney stones Surgical History Surgery Date(Month/Year) Hip replacement
--- OUTSIDE RECORDS SUMMARY | 2025-02-02 12:38 | XMS_ITS | Clinical Summary ---
Author Organization [facility] Address [address] [facility] [place] [place] [address] Care Team Providers Care Bridge Crane Operator Name Role Phone Jorge L Flynn MD Primary Care Provider [phone] Source Comments [facility],non-owned Affiliates and Associated Physician Practices is amultiple site organization consisting of ambulatory clinics and hospital sitesin [place], [place], [place] and [place]. This disclosure is being madepursuant to the Care Everywhere program and may not contain all information available regarding this patient. 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 Gender Identity Not on file Sexual Orientation Not on file Last Filed Vital Signs Vital Sign Reading Time Taken Comments Blood Pressure 160/99 06/02/2014 11:31 AM CDT Pulse 65 06/02/2014 11:31 AM CDT Temperature 36.4 C (97.5 F) 05/05/2014 10:27 AM CDT Respiratory Rate 18 04/04/2014 1:29 AM CDT Oxygen Saturation 96% 04/04/2014 3:00 AM CDT Inhaled Oxygen Concentration - - Weight 71.7 kg (158 lb) 05/05/2014 10:27 AM CDT Height 177.8 cm (5' 10) 04/04/2014 1:29 AM CDT Body Mass Index 22.67 04/04/2014 1:29 AM CDT Plan of Treatment Health Maintenance Due Date Last Done Comments COLOGUARD (AGES 45-75) - COL ON CA SCREENING 1958 COLON MONITORING 1958 COLONOSCOPY - COLON CA SCREENING 1958 CT COLONOGRAPHY - COLON CA SCREENING 1958 Colorectal Cancer Screening 1958 FIT - COLON CA SCREENING 1958 FLEX SIG - COLON CA SCREENING 1958 LIPID TESTING 1958 HEPATITIS C SCREENING 09/05/1976 PNEUMOCOCCAL VACCINE 50+ (1 of 2 - PCV) 1977 ZOSTER VACCINE (1 of 2) 2008 AAA SCREENING 2023 DTAP/TDAP/TD VACCINES (2 - T d or Tdap) 04/04/2024 04/04/2014 COVID-19 VACCINE ( - 2023-2 5 season) 2024 DEPRESSION SCREENING 09/07/2024 INFLUENZA VACCINE (Season Ended) 2025 Respiratory Syncytial Virus (RSV) Vaccine Pt: or over 60 yrs (1 - 1-dose 75+ series) 2033 HEPATITIS B VACCINE Aged Out No longe r eligible based on patient's age to complete this topic HIB VACCINE Aged Out No longer eligi ble based on patient's age to complete this topic HPV VACCINE Aged Out No longer eligi ble based on patient's age to complete this topic MENINGOCOCCAL (Group B) VACC INE SHARED DECISION-MAKING Aged Out No longer eligibl e based on patient's age to complete this topic MENINGOCOCCAL GROUPS A/C/Y/W VACCINE Aged Out No longer eligible b ased on patient's age to complete this topic Insurance [employer] [facility] Care Teams Bridge Crane Operator Relationship Specialty Start Date End Date Jorge L Flynn MD [address] [place] [id number] PCP - General 04/14/14
--- OUTSIDE RECORDS SUMMARY | 2025-02-02 12:38 | XMS_ITS ---
Author Organization [facility] Address [address] [place] [phone] Care Team Providers Care Tree Climber Name Role Phone Venkatesh Naranjo Primary Care Provider Sky Bran [phone] Encounters Encounter Location Date Provider Diagnosis [facility] [address], [facility] [address] [place], [place] [phone] 01/13/2025 Sky Gomez PLAN OF TREATMENT Next Appt Details Provider Name:Sky Gomez, 07:30:00 AM, [address], [address], [place], [place], [phone], Provider Name:Marisol yu, 04/10/2025 08:40:00 AM, [address], [facility] [address], [place], [place], [phone],
--- OUTSIDE RECORDS SUMMARY | 2025-02-02 12:38 | XMS_ITS | Clinical Summary ---
Author Organization [facility] Address [address] [place] [address] Phone Care Team Providers Care Sales Consultant Residential Manager Name Role Phone Jorge L Flynn MD Primary Care Provider [phone] Allergies No known active allergies Medications methotrexate (RHEUMATREX) 2.5 mg Tablet Take 2.5 mg by mouth every 7 days. Active etanercept (ENBREL) 25 mg (1 mL) Recon Soln Inject by subcutaneous injection one time only. Active folic acid (FOLVITE) 1 mg tablet Take 1 mg by mouth daily. 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 Gender Identity Not on file Sexual Orientation Not on file Last Filed Vital Signs Vital Sign Reading Time Taken Comments Blood Pressure 160/105 12/05/2014 9:33 AM CDT lef t arm Pulse 85 12/05/2014 9:33 AM CDT Temperature - - Respiratory Rate 16 11/27/2014 2:44 PM CDT Oxygen Saturation 100% 11/27/2014 2:44 PM CDT Inhaled Oxygen Concentration - - Weight 74.4 kg (164 lb) 12/05/2014 9:33 AM CDT Height 177.8 cm (5' 10) 12/05/2014 9:33 AM CDT Body Mass Index 23.53 12/05/2014 9:33 AM CDT Plan of Treatment Health Maintenance Due Date Last Done Comments COLORECTAL SCREENING 2003 Colorectal Cancer Screening 2003 FIT-DNA Q 3 years 2003 FIT/FOBT Q 1 year 2003 Flex Sig/CT Colonography Q 5 years 2003 PNEUMOCOCCAL VACCINE 50+ YEA RS (1 of 1 - PCV) 2008 ZOSTER VACCINE (1 of 2) 2008 INFLUENZA VACCINE (#1) 2024 06/07/2018 DTAP/TDAP/TD VACCINES (4 - T d or Tdap) 03/17/2025 03/17/2015, 04/04/2014, 03/21/2010, Additional history exists RSV VACCINE (60+ or ) (1 - 1-dose 75+ series) 2033 [place] [address] [facility] BLUE ACCESS/TRUE BLUE PPO Agent Partner O OPEN ACCESS Advance Directives For more information, please contact: [phone] * Full Code (Latest Code Status on File) Date Activated Date Inactivated Comments 11/27/2014 11:07 AM 11/27/2014 4:45 PM Care Teams Sales Consultant Residential Manager Relationship Specialty Start Date End Date Jorge L Flynn MD [address] [place] [id number] PCP - General Family Practice 11/02/14
--- OUTSIDE RECORDS SUMMARY | 2025-02-02 12:39 | XMS_ITS ---
Author Organization [facility] Address [address] [place], [place] [id number] Care Team Providers Care Management Instructor Name Role Phone Kasandra Naranjon Primary Care Provider Unavailabl Sky Son Unavailable [phone] Scheidemantel, Marisol Unavailable ALLERGIES No Known Allergies REASON FOR VISIT Patient is here for RA follow up. MEDICATIONS Medication SIG (Take, Route, Fr equency, Duration) Notes Start Date End Date Status lisinopril 10 mg 1 tab(s) orally once a day Active metoprolol 1 tab(s) orally once a day Active Simponi Aria Active VITAL SIGNS BMI 22.24 kg/m2 12/12/2024 Blood pressure systolic 160 mm Hg 12/13/19 25 Blood pressure diastolic 92 mm Hg 025 Heart Rate 64 /min 12/12/2024 Height 70 in 12/12/2024 Weight 155 lbs 12/12/2024 Encounters Encounter Location Date Provider Diagnosis [facility] [address], [address] [place], [place] [id number] 12/12/2024 Marisol Scheidemantel Rheumatoid arthritis of multiple sites without organ or system involvement with positive rheumatoid factor M05.79 ; Other intermodal customer service (current) drug therapy Z79.899 ; Screening examination for pulmonary tuberculosis Z11.1 and BP (high blood pressure) I10 ASSESSMENTS Encounter Date Diagnosis Assessment Notes Treatment Notes Treatment Clinical Notes 12/12/2024 Rheumatoid arthritis of multiple sites without organ or system involvement with positive rheumatoid factor (ICD-10 - M05.79) 12/12/2024 Other penitentiary (current) drug therapy (ICD-10 - Z79.899) 12/12/2024 Screening examination for pulmonary tuberculosis (ICD-10 - Z11.1) 12/12/2024 BP (high blood pressure) (ICD-10 - I10) PLAN OF TREATMENT Medication Medication Name Sig Start Date Stop Date Notes lisinopril 10 mg 1 tab(s) orally once a day metoprolol 1 tab(s) orally once a day Next Appt Details Follow Up: 4 Months, Reason: Provider Name:Sky Gomez, 07:30:00 AM, [address], [address], [place], [place], [id number], Provider Name:Marisol yu, 04/10/2025 08:40:00 AM, [address], [address], [place], [place], [id number], Progress Notes * Examination Category Sub-Category Detail Notes General Constitutional: No acute distres s HEENT: PERRLA, Neck supple, Normal sclerae and conjunctivae Cardiovascular RSR, No murmurs, Nor mal peripheral pulsations, No edema Lungs: clear to ausculation Abdomen: soft, no organomegal y or masses /Rectal: not done Skin: No cutaneous lesions . No subcutaneous nodules noted in the 4 extremities, sun damage Neurological: No focal neurologica l findings Heme/Lymphatic: No cervical, axillar y, or inguinal adenopathy Psych: Alert, oriented x 3, Normal affect Musculoskeletal: Normal strength. No muscle atrophy Joint Exam Shoulders No swelling. No tenderness. NROM. Elbows No swelling. No tend erness. NROM., No instability or deformity. Wrists No swelling. No tend erness. NROM., No instability or deformity, bilateral, decreased ROM MCP1 right, bony enlargem ent MCP2 right, bony enlargem ent Hips No tenderness, NROM. , No instability or deformity. Knees NROM., No instabilit y or deformity. Ankles No swelling, no tend erness, right bony enlargement decreased ROM, All IPs No swelling, no tend erness, NROM, no deformity unless noted below. All MCPs No swelling, no tend erness, no deformity unless noted below., right, 1+ swelling (resolved) All PIPs No swelling, no tend erness, no deformity unless noted below., right fullness (resolved) All DIPs No swelling, no tend erness, no deformity unless noted below. All MTPs No swelling, no tend erness, NROM, no deformity unless noted below. History and Physical Notes * HPI (History of Present Illness) Category Sub-Category Detail Notes Rheumatoid Arthritis Breathing difficulties fatigue mild Fever Joint pain right shoulder, hand s Joint Swelling ankles chronic, left knee Morning stiffness < 30 minutes infections rash chest pain Physical Examination Category Sub-Category Detail Notes MDHAQ Summary Function (0-10):: 1.3 Pain (0-10):: 1.5 Patient Global Assessment of Disease Activity (0 -10):: 2 RAPID3 Score (0-30):: 4.8 Physician Global Assessment of Disease Activity (0-10):: 2 Prognosis Very Good w/tx Erosive Damage No
[2025-02-02 12:44] VITALS: BP 174/100; PULSE 94; RESP 16; TEMP 36.3; O2SAT 99
--- NOTE | 2025-02-02 13:41 | ED.LOWEXIN ---
HPI - Extremity Injury (Lower) General Chief Complaint: Extremity Injury, Lower <Oly Pena PA-C - Last Filed: 02/03/25 09:24> Stated Complaint: fall 02/01, L hip pain <Oly Pena PA-C - Last Filed: 02/03/25 09:24> Time Seen by Provider: 02/02/25 13:41 <Oly Pena PA-C - Last Filed: 02/03/25 09:24> Focused HPI: This is a 64 year old male that presents to the ER after a fall. Reports landing on his left hip. He did not hit his head or lose consciousness. Reports history of hip replacement on this side, this was done at [place] GENERAL: Well-appearing, well-nourished, and in no acute distress. HEAD: Normocephalic, atraumatic. CHEST: Clear to auscultation. ?No respiratory distress. HEART: Regular rate and rhythm.? NEURO: ?Alert and oriented x3. Patient screened in triage and initial orders placed.? ?Additional care and disposition to be based upon?diagnostic testing and treatment. <Oly Pena PA-C - Last Filed: 02/03/25 09:24> History of Present Illness HPI Narrative: Patient is 64-year-old gentleman who presents emergency department with chief complaint of left hip pain. The patient reports he fell yesterday reports that he has pain on his left hip area where he has had a prior hip replacement. Patient reports his original surgery was 15 years ago at [place] <Joseph Velasquez MD - Last Filed: 02/02/25 18:49> Related Data Home Medications: Home Medications ?Medication ?Instructions ?Recorded ?Confirmed ?Last Taken ?Type methotrexate sodium 2.5 mg tablet 20 mg PO WEEKLY 10/17/19 01/22/23 11/10/22 09:00 History folic acid 1 mg tablet 1 mg PO DAILY 02/04/22 01/22/23 11/12/22 09:00 History etanercept 50 mg/mL (1 mL) 50 mg subcut WEEKLY 11/10/22 01/22/23 11/10/22 09:00 History subcutaneous pen injector (Enbrel Milagro) diphenhydramine HCl 50 mg capsule 50 mg PO QHS 01/22/23 01/22/23 Unknown History (Unisom SleepGels) <Oly Pena PA-C - Last Filed: 02/03/25 09:24> Allergies/Adverse Reactions: Allergies Allergy/AdvReac Type Severity Reaction Status Date / Time No Known Allergies Allergy Verified 02/02/25 12:46 <Oly Pena PA-C - Last Filed: 02/03/25 09:24> Review of Systems Review of Systems: A 10 system review of systems was completed on the patient and is negative except for what is stated in the HPI. Nursing and ancillary documentation was reviewed. <Joseph Velasquez MD - Last Filed: 02/02/25 18:49> [facility] Past Medical History Medical History: Medical History Premature atrial complexes BMI (body mass index) 20.0-29.9 High risk sexual behavior Stress due to family tension Left knee pain Osteopenia Arthritis of knee, left Arthritis of right ankle BMI 21.0-21.9, adult Pavon's palsy Shingles rash Arthritis Right shoulder pain Claudication in peripheral vascular disease Essential (primary) hypertension Rheumatoid arthritis involving multiple sites with positive rheumatoid factor <Oly Pena PA-C - Last Filed: 02/03/25 09:24> Surgical History Surgical History: Surgical History Subcapital fracture of neck of right femur Pinning in-situ 01/23/2022 History of tonsillectomy History of total left hip replacement <Oly Pena PA-C - Last Filed: 02/03/25 09:24> Family History Family History: Family History Mother Family history of malignant neoplasm of breast Family history of malignant neoplasm of breast in first degree relative Heart failure Breast cancer Sibling Heart attack S/P CABG x 4 Father , Natural causes Heart disease <Oly Pena PA-C - Last Filed: 02/03/25 09:24> Social History Social History: Social History Smoking packs per day: 0.5 Smoking cigarettes per day: 10.0 Years smoked: 45 Smoking pack-years: 22.50 Smoking status: Former smoker (currently uses vape pen) Tobacco type: cigarettes Second hand tobacco smoke exposure: No Additional smoking assessment comments: Patient stopped cigarettes 05/06/21 started vaping Alcohol intake: current Drinks per week: 4 Alcohol use details: Patient drinks hard liquor on weekends. 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 HEAD: Normocephalic, atraumatic. EYES: PERRLA and EOMI. ENT: Nares clear, no rhinorrhea or epistaxis. Mucous membranes moist. NECK: Supple. CHEST: Clear to auscultation. No respiratory distress. HEART: Regular rate and rhythm. No murmur heard. Normal peripheral pulses. ABDOMEN: Soft, nontender, nondistended, normal active bowel sounds. EXTREMITIES: Normal range of motion tenderness to palpation of the left hip. No edema. SKIN: Warm, dry, no rash. NEURO: No focal deficits. Alert and oriented x3. PSYCH: Normal mood and affect. <Joseph Velasquez MD - Last Filed: 02/02/25 18:49> Course Vital Signs Vital signs: Vital Signs Temperature 97.4 F L 02/02/25 12:44 Pulse Rate 94 02/02/25 12:44 Respiratory Rate 16 02/02/25 12:44 Blood Pressure 174/100 H 02/02/25 12:44 Pulse Oximetry 99 02/02/25 12:44 Temperature 97.4 F L 02/02/25 12:44 Pulse Rate 94 02/02/25 12:44 Respiratory Rate 16 02/02/25 12:44 Blood Pressure 174/100 H 02/02/25 12:44 Pulse Oximetry 99 02/02/25 12:44 <Oly Pena PA-C - Last Filed: 02/03/25 09:24> Vital Signs Temperature 97.4 F L 02/02/25 12:44 Pulse Rate 94 02/02/25 12:44 Respiratory Rate 16 02/02/25 12:44 Blood Pressure 174/100 H 02/02/25 12:44 Pulse Oximetry 99 02/02/25 12:44 Temperature 97.4 F L 02/02/25 12:44 Pulse Rate 94 02/02/25 12:44 Respiratory Rate 16 02/02/25 12:44 Blood Pressure 174/100 H 02/02/25 12:44 Pulse Oximetry 99 02/02/25 12:44 <Joseph Velasquez MD - Last Filed: 02/02/25 18:49> MDM - Extremity Injury (Lower) MDM Narrative Medical decision making narrative: Differential diagnosis includes fracture, contusion Plain film x-ray showed evidence of a greater troch fracture with possible extension into the femur CT scan was obtained that showed a fracture that extends from proximal left femur extending into the intertrochanteric area The case was discussed with orthopedics on-call who at this time felt that the fracture was stable and the patient could be treated with toe-touch weight-bearing recommended the patient either follow up with the orthopedic surgeons over at the [place] trauma clinic The patient will be given the information for the [place] [facility] trauma clinic <Joseph Velasquez MD - Last Filed: 02/02/25 18:49> Imaging Data Radiologist's impression: ITS Impressions Hip/Pelvis X-Ray 02/02/25 14:16 Impression: 1: Acute minimally displaced fracture proximal aspect of the left femur. No evidence for loosening of the left hip arthroplasty. Hip CT 02/02/25 18:17 IMPRESSION: Left total knee arthroplasty with fracture in the proximal left femur extending to the intertrochanteric area.. <Oly Pena PA-C - Last Filed: 02/03/25 09:24> Critical Care Time Critical Care Time Critical Care Time: No <VERITO Andrew Last Filed: 02/03/25 09:24> Discharge Plan Discharge Clinical Impression: Fall from ground level Closed fracture of greater trochanter of left femur Qualifiers: Encounter type: initial encounter Fracture alignment: displaced Qualified Code(s): S72.112A - Displaced fracture of greater trochanter of left femur, initial encounter for closed fracture <VERITO Andrew Last Filed: 02/03/25 09:24> Patient Disposition: Home <VERITO Andrew Last Filed: 02/03/25 09:24> Condition: Stable <VERITO Andrew Last Filed: 02/03/25 09:24> Instructions: Antibiotic Form, Crutch Instructions (ED), Hip Fracture (ED) <VERITO Andrew Last Filed: 02/03/25 09:24> Additional Instructions: Is recommended that you ambulate with either no weight-bearing on the left leg or at most toe-touch weight-bearing. Please follow-up with the [place] orthopedic trauma clinic please call [phone] daily to schedule an appointment If you are unable to follow-up with the [facility] orthopedic trauma clinic you were given the information for our local orthopedic surgeon <Oly Pena PA-C - Last Filed: 02/03/25 09:24> Patient Language: Indonesian <Oly Pena PA-C - Last Filed: 02/03/25 09:24> Prescriptions: New hydrocodone-acetaminophen 5-325 mg tablet 1 tablet PO Q6H PRN (Reason: pain) 3 Days Qty: 12 0RF No Action methotrexate sodium 2.5 mg tablet 20 mg PO WEEKLY Patient Comments: Takes on Thursday folic acid 1 mg tablet 1 mg PO DAILY Enbrel SureClick 50 mg/mL (1 mL) pen injector 50 mg subcut WEEKLY diphenhydramine HCl [Unisom SleepGels] 50 mg capsule 50 mg PO QHS metoprolol succinate 50 mg tablet extended release 24 hr See Rx Instructions .ROUTE .COMPLEX Qty: 90 3RF Dose Instruction: TAKE 1 TABLET DAILY Rx Instructions: TAKE 1 TABLET DAILY tadalafil 20 mg tablet See Rx Instructions .ROUTE .COMPLEX Qty: 27 4RF Dose Instruction: TAKE INSTRUCTED BY YOUR PRESCRIBER Rx Instructions: TAKE INSTRUCTED BY YOUR PRESCRIBER lisinopril 10 mg tablet See Rx Instructions .ROUTE .COMPLEX Qty: 90 3RF Dose Instruction: TAKE 1 TABLET DAILY Rx Instructions: TAKE 1 TABLET DAILY <Oly Pena PA-C - Last Filed: 02/03/25 09:24> Follow-up/Referrals: Heriberto Christine MD [Physician] - Venkatesh Naranjo MD [Primary Care Provider] - <Oly Pena PA-C - Last Filed: 02/03/25 09:24>
--- OUTSIDE RECORDS SUMMARY | 2025-02-02 16:25 | XMS_ITS ---
Author Organization [facility] Address [address] [place], [place] [id number] Care Team Providers Care Rental Management Trainee Name Role Phone Kasandra Naranjon Primary Care Provider Sky Bran Unavailable [phone] REASON FOR VISIT Simponi AriaCB - House Rx Encounters Encounter Location Date Provider Diagnosis [facility] [address] [place], [place] [id number] 02/02/2025 Sky Gomez PLAN OF TREATMENT Next Appt Details Provider Name:Sky Gomez, 07:30:00 AM, [address], [facility] [address], [place], [place], [id number], Provider Name:Marisol yu, 04/10/2025 08:40:00 AM, [address], [facility] [address], [place], [place], [id number],
--- OUTSIDE RECORDS SUMMARY | 2025-02-02 16:25 | XMS_ITS | Continuity of Care Document ---
Author Organization [facility] Address [address] [place] [address] Phone Care Team Providers Care Overhauler Name Role Phone Ang Hall MD Unavailable Unavailable Allergies, Adverse Reactions, Alerts Substance Reaction Status Criticality No Known Allergies Active No Inform ation Medications Medication Instructions Dosage Effective Dates (start - stop) Status Comments ENBREL (unknown strength) inject 1 milliliter by subcutaneous route 2 times every week 72-96 hours apart Not Available - Active methotrexate sodium 25 mg/mL injection solution inject 1 milliliter by intramuscular route every week 25 MG - Active FOLIC ACID (unknown strength) take 1 tablet by oral route every day Not Available - Active METOPROLOL TARTRATE (unknown strength) Not Available - Active Orwell 5 mg-325 mg tablet take 1 tablet by oral route every 4 - 6 hours as needed for pain 1 tablet - Active Procedures Procedure Date POSTOP FOLLOW-UP VISIT POSTOP FOLLOW-UP VISIT POSTOP FOLLOW-UP VISIT OFFICE CONSULTATION Advance Directives Directive Yes / No Effective Date File Name No Information Encounters Encounter Description Practice Location Reason(s) For Visit Diagnoses Date Provider Providers Copied on Encounter [facility], [address], [place], [address], [place] tel:[phone] [facility] Hien Kennedy calcaneous fx (chief complaint) Closed nondisplaced fracture of left calcaneus, unspecified fracture morphology, initial encounter 0 5 Rafael Fry. [address], [place], [place], [id number] . tel:[phone] [facility], [address], [place], [address], [phone] [facility] [place] L HEEL (chief complaint) Closed nondisplaced fracture of left calcaneus, unspecified fracture morphology, initial encounter 5 Rafael Fry. [address], [place], [place], [address] . tel: [phone] [facility], [address], [place], [address], tel:[phone] [facility] Hien Follow Up of s/p l calcaneus fx (chief complaint) Calcaneus fracture, left 5 Rafael Fry. [address], [place], [place], [id number] . tel: [phone] OFFICE CONSULTATION [facility], [address] [place] [address], [address], tel:[phone] [facility] [place] L heel fx (chief complaint) Calcaneus fracture, left 5 Rafael Fry. [address], [place], [place], [id number] . tel: [phone] Referring Provider: Uriel Castillo, [address], [place], [address] . tel:[phone] Family History Family Member Type Diagnosis Age At Onset Father Problem (finding) Alive and well Payers Payer name Insurance type Covered republican ID Authorgeorgesa tioleksandr(s) Blue Access PPO E2 OT [id number] Social History Type Description Quantity Date Captured Comments Alcohol Use Details Unknown Caffeine Use Details Unknown Tobacco Use Status Smoking Status No Information Sex Male Chief Complaint And Reason For Visit From encounter dated '07/06/2015 09:00'. Lt calcaneous fx (chief complaint) Reason For Referral Reason For Referral No Information Plan Of Treatment Date Type Action Status Referral Ordered: RADEX CALCANEUS MINIMUM 2 VIEWS LT ordered History Of Present Illness Encounter Date Complaint History Of Prese nt Illness Lt calcaneous fx L HEEL Follow Up of s/p l calcaneus fx L heel fx Functional Status Date Functional Assessmen t No Information Instructions Date Instruction Additional Infor mation No Information Assessments Type Assessment Date assessment Closed nondisplaced fracture of left calcaneus, unspecified fracture morphology, initial encounter Patient Care Teams Name Effective Dates (start - stop) Status Members No Information
--- OUTSIDE RECORDS SUMMARY | 2025-02-02 16:25 | XMS_ITS | Clinical Summary ---
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
--- OUTSIDE RECORDS SUMMARY | 2025-02-02 16:25 | XMS_ITS | Clinical Summary ---
Author Organization [facility] Address [address] [place] [address] Care Team Providers Care Fireworks Assembler Name Role Phone Jorge L Flynn MD Primary Care Provider [phone] Source Comments [facility],non-owned Affiliates and Associated Physician Practices is amultiple site organization consisting of ambulatory clinics and hospital sitesin [place], [place], [place] and [place]. This disclosure is being madepursuant to the Care Everywhere program and may not contain all information available regarding this patient. 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
--- OUTSIDE RECORDS SUMMARY | 2025-02-02 16:25 | XMS_ITS | Continuity of Care Document ---
Author Organization [facility] Address [address] [place] [address] Phone Care Team Providers Care Physics Faculty Member Name Role Phone Rodri Fuller MD Unavailable Unavailable Allergies, Adverse Reactions, Alerts Substance Reaction Status Criticality No Known Allergies Active No Inform ation Medications Medication Instructions Dosage Effective Dates (start - stop) Status Comments Enbrel 25 mg/0.5 mL subcutaneous solution - Active Procedures Procedure Date X-ray exam shoulder complete, minimum 2 views Office/outpatient visit,[facility] 2022 Advance Directives Directive Yes / No Effective Date File Name No Information Encounters Encounter Description Practice Location Reason(s) For Visit Diagnoses Date Provider Providers Copied on Encounter Office/outpa tient visit,[facility], [facility], [address] [place], [place] [address], [id number], tel:[phone] [facility] Shoulder pain (chief complaint) Pain in right shoulderPrimary osteoarthritis, right shoulderComplete rotatr-cuff tear/ruptr of r shoulder, not trauma 3 Alina Mace. [address], [place], [place], [id number] , [place]. tel:[phone] Family History Family Member Type Diagnosis Age At Onset Mother Problem (finding) Cancer, unknown Immunizations Vaccine Date Status Comments influenza, injectable, quadr ivalent, (3 years or older) administered Source: Other Provid er Payers Payer name Insurance type Covered constitution party ID Carolina chiu(s) Charlie Izaguirre Of [facility] [id number] [facility] [place] [id number] Social History Type Description Quantity Date Captured Comments Alcohol Use Details Unknown Caffeine Use Details Unknown Tobacco Use Status Ex-smoker Smoking Status Former smoker Non-Smoking Tobacco Use Details : No Details Available : No Details Available Sex Male Vital Signs Date / Time: Height Weight BMI Pulse Rate Blood Pressure Temperature Respiratory Rate Body Surface Area Head Circumference Head Circ. Percentile Wt./Saad. Percentile BMI percentile Pulse Ox Inhaled Ox 10:48 AM 70.00 in 70.307 kg (155.00 lbs) 22.2 4 kg/m eter (2) Chief Complaint And Reason For Visit From encounter dated '11/21/2022 10:45'. Shoulder pain (chief complaint). Description: Location: shoulder. Additional information: Patient comes in today for right shoulder pain. Reason For Referral Reason For Referral No Information Plan Of Treatment Date Type Action Status Referral Ordered: X-ray exam shoulder complete, minimum 2 views RT ordered History Of Present Illness Encounter Date Complaint History Of Prese nt Illness Shoulder pain Location: should er. Additional information: Patient comes in today for right shoulder pain. Functional Status Date Functional Assessmen t No Information Instructions Date Instruction Additional Infor mation No Information Assessments Type Assessment Date assessment Pain in right shoulder assessment Primary osteoarthritis, right sh oulder assessment Complete rotatr-cuff tear/ruptr of r shoulder, not trauma Patient Care Teams Name Effective Dates (start - stop) Status Members No Information
--- OUTSIDE RECORDS SUMMARY | 2025-02-02 16:26 | XMS_ITS | Referral Summary ---
Author Organization 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
--- OUTSIDE RECORDS SUMMARY | 2025-02-02 16:26 | XMS_ITS | Clinical Summary ---
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
== END 2025-02-02 19:24 | disposition home or self-care (01) ==
PROVIDERS: Emergency Provider Emergency Medicine; PCP Family Medicine
DX: S72.112A Displaced fracture of greater trochanter of left femur, initial encounter for closed fracture (principal); I10 Essential (primary) hypertension; M85.80 Other specified disorders of bone density and structure, unspecified site; M17.12 Unilateral primary osteoarthritis, left knee; M19.071 Primary osteoarthritis, right ankle and foot; M05.79 Rheumatoid arthritis with rheumatoid factor of multiple sites without organ or systems involvement; F17.290 Nicotine dependence, other tobacco product, uncomplicated; Z96.642 Presence of left artificial hip joint; W19.XXXA Unspecified fall, initial encounter
CPT/HCPCS: 73502; 73700; 99284